=== PATIENT | male | born 1970 | race Two or more races ===

== ENCOUNTER 2019-05-05 13:03 | Outpatient (REF) | payer OTHER, SELFPAY ==
[2019-05-05 13:41] LABS: ALT 28 U/L (16-63); AST 15 U/L (15-37); Albumin 3.9 g/dL (3.4-5.0); Alkaline Phosphatase 103 U/L (46-116); Anion Gap 8.2 mmol/L (3-11); BUN 15 mg/dL (7-18); Bilirubin, Total 0.3 mg/dL (0.2-1.0); CO2 28.8 mmol/L (21.0-32.0); CREATININE 1.03 mg/dL (0.70-1.30); Calculated LDL 120 mg/dL; Chloride 106 mmol/L (98-107); Cholesterol 177 mg/dL (50-200); Glucose 107 mg/dL (70-100); HDL Cholesterol 45 mg/dL (40-60); Potassium 4.4 mmol/L (3.5-5.1); Sodium 143 mmol/L (136-145); Total Protein 7.3 g/dL (6.4-8.2); Triglyceride 60 mg/dL (30-150)
== END 2019-05-05 13:23 ==
LOC: NCHCN 13:03
PROVIDERS: PCP Internal Medicine; Visit Provider Nurse Practitioner Family
DX: Z00.00 Encounter for general adult medical examination without abnormal findings (principal); Z13.228 Encounter for screening for other metabolic disorders; Z13.220 Encounter for screening for lipoid disorders
CPT/HCPCS: 80053; 80061; 83721

== ENCOUNTER 2020-12-13 18:53 | Outpatient (REF) | payer OTHER, SELFPAY ==
[2020-12-13 21:11] LABS: Anion Gap 8.4 mmol/L (3-11); BUN 12 mg/dL (7-18); CO2 29.6 mmol/L (21.0-32.0); CREATININE 1.1 mg/dL (0.70-1.30); Calcium 9.9 mg/dL (8.5-10.1); Chloride 103 mmol/L (98-107); Glucose 89 mg/dL (74-106); Potassium 4.1 mmol/L (3.5-5.1); Sodium 141 mmol/L (136-145)
== END 2020-12-13 18:54 | disposition home or self-care (01) ==
LOC: NCHCN 18:53
PROVIDERS: PCP Internal Medicine; Visit Provider Physician Assistant Medical
DX: Z00.00 Encounter for general adult medical examination without abnormal findings (principal); R30.0 Dysuria
CPT/HCPCS: 80048; 87086

== ENCOUNTER 2021-03-29 15:15 | Outpatient (REF) | payer OTHER, SELFPAY ==
[2021-03-29 21:34] LABS: PSA, Screening 0.7 ng/mL (0.0-2.5)
== END 2021-03-29 15:16 | disposition home or self-care (01) ==
LOC: NCHCN 15:15
PROVIDERS: PCP Internal Medicine; Visit Provider Nurse Practitioner Family
DX: N48.89 Other specified disorders of penis (principal); R30.0 Dysuria; R39.11 Hesitancy of micturition
CPT/HCPCS: 84153

== ENCOUNTER 2021-06-23 18:36 | Emergency (ER) | payer OTHER, SELFPAY ==
[2021-06-23 18:41] VITALS: BP 134/80; PULSE 84; RESP 16; TEMP 36.8; O2SAT 98
--- NOTE | 2021-06-23 18:59 | ED.GENADUL_ITS ---
Discharge Plan Disposition Patient Disposition: HOME Condition: Stable Discharge Details Clinical Impression: Back pain Primary Care Provider: Nixon Jackson ED Provider: Silvia Shaver Home Meds and New Rx's Prescriptions: New orphenadrine citrate 100 mg tablet extended release 100 mg PO BID Qty: 10 RF: 0 lidocaine [Lidoderm] 5 % adhesive patch,medicated 1 patch topical DAILY Qty: 15 RF: 0 Continued acetaminophen [Tylenol] 325 mg capsule 650 mg PO Q6H PRNRF: 0 Discharge Instructions Instructions: Back Pain (ED) Additional Instructions: Ibuprofen 600 mg every 8 hours with food Lidoderm patch, 12 hours on, 12 hours off Twice daily Follow-up with primary care physician in 1 to 2 days for reassessment Return earlier should you have strength or sensation change, fever, chills, or with any new or worsening complaints Stand Alone Forms: Work Release Medical Decision Making CT per virtual radiology interpretation in my review does not show acute abnormality, patient does have bilateral nephrolithiasis without ure terolithiasis His urinalysis is completely clear, no evidence of infection Patient feeling symptomatically improved I will treat him for musculoskeletal pain and referred him primary care physician His vitals are stable and his exam is stable, he is ambulatory with steady gait He is given a work note He is instructed return earlier should he have new or worsening complaints including strength or sensation change, fever, chills, abdominal pain, or should he develop new or worsening complaints including groin numbness or changes in bowel or bladder. Medical Records Medical records reviewed: Yes I reviewed the patient's medical records. Lab Data Lab results reviewed: Yes I reviewed the patient's lab results. HPI General Mode of arrival: ambulatory . Date/Time Provider Initiated Documentation: 06/23/21 18:37 . Limitations to Documentation: no limitations . Information obtained by: patient . HPI Narrative: This 50-year-old male presents with report of back pain for the past week he is intermittent and now worsening today. He was doing some wai when the pain first initiated and was across his entire back. He states now is localized to the left flank region. He states the pain is worse when he is laying in a supine position and going from supine to sitting. He denies any strength or sensation change. He denies any fever or chills. He denies any changes in bowel or bladder. He denies any history of IV drug abuse. He denies sharp stabbing pain. He denies any history of Marfan's or known history of early aortic dissection in family members. He does not smoke tobacco. He denies any strength or sensation changes distally. He denies any radiation of pain. Denies chest pain or shortness of breath. Denies dizziness or weakness. Related Data Home Medications Medication Instructions Recorded Confirmed acetaminophen 325 mg capsule 650 mg PO Q6H PRN cap 06/19/21 06/23/21 lidocaine [Lidoderm] 1 patch TOPICAL DAILY #15 ea 06/23/21 orphenadrine citrate 100 mg PO BID #10 tab 06/23/21 Previous Rx's Medication Instructions Recorded lidocaine [Lidoderm] 1 patch TOPICAL DAILY #15 ea 06/23/21 orphenadrine citrate 100 mg PO BID #10 tab 06/23/21 Allergies Allergy/AdvReac Type Severity Reaction Status Date / Time bupropion [From Wellbutrin] AdvReac Intermediate Unverified 06/23/21 18:45 General Stated Complaint: Nk/Back Pain JESUS MANUEL: 4 Review of Systems All systems reviewed & are unremarkable except as noted in HPI and below PFSH Medical History (Updated 06/23/21 @ 21:21 by ANJELICA Garcia) Coccyx pain Dysuria GERD (gastroesophageal reflux disease) HLD (hyperlipidemia) Left hip pain Penile pain Right knee pain Spontaneous pneumothorax Social History Smoking/Tobacco Use Status: Former Tobacco Use Smoking risk assessment performed?: Yes Alcohol Intake: former Substance use type: does not use Exam Const General: cooperative and no acute distress Chest Chest: normal inspection of the chest Resp Effort & Inspection: normal respiratory effort Cardio Rate: regular rate Rhythm: regular rhythm Heart Sounds: murmur GI Other: No abdominal bruit or pulsatile mass, No CVA tenderness Back/Spine/Pelvis Other: No lumbar spine tenderness Skin General skin exam: no rashes or lesions noted Neuro General: patient alert and patient oriented x3 Other: DTRs intact bilateral upper and lower extremities, strength and sensation intact distally Negative straight leg raise, negative Babinski Extrem Other: Distal pulses intact Course Vital Signs Vital signs: Vital Signs Temperature 36.8 C 06/23/21 18:41 Pulse 84 06/23/21 18:41 Respiratory Rate 16 06/23/21 18:41 Blood Pressure 134/80 06/23/21 18:41 Pulse Oximetry 98 06/23/21 18:41 Temperature 36.8 C 06/23/21 18:41 Temperature Source Skin 06/23/21 18:41 Pulse 84 06/23/21 18:41 Respiratory Rate 16 06/23/21 18:41 Respiratory Effort Non-Labored 06/23/21 18:41 Blood Pressure 134/80 06/23/21 18:41 Blood Pressure Position Sitting 06/23/21 18:41 Pulse Oximetry 98 06/23/21 18:41 Oxygen Delivery Method Room Air 06/23/21 18:41 Oxygen Flow Rate 0 06/23/21 18:41 Pain Level 8 06/23/21 18:41
[2021-06-23] MEDS: Lidocaine 5% Patch 1 PATCH TP (19:04)
[2021-06-23 19:05] LABS: Bilirubin Negative (Negative); Blood Negative (Negative); Clarity Clear (Clear); Glucose Negative (Negative); Ketones Negative (Negative); Leukocyte Esterase Negative (Negative); Nitrite Negative (Negative); Specific Gravity 1.015 (1.005-1.025); Urobilinogen 0.2 EU/dL (Up TO 0.2)
[2021-06-23] MEDS: Ketorolac 15 MG/ML VIAL IM (19:10)
[2021-06-23] MEDS: Orphenadrine 60 MG/2 ML VIAL IM (19:10)
--- NOTE | 2021-06-23 19:45 | DI.CT_ITS ---
Exam(s) CT ABDOMEN PELVIS WO EXAM: CT ABDOMEN PELVIS WO CLINICAL HISTORY: left flank pain. TECHNIQUE: Imaging Protocol: Axial computed tomography images with coronal and sagittal reformatted images were created and reviewed. COMPARISON: No exams were available for comparison FINDINGS: ABDOMEN: Lung Bases: Paraseptal emphysematous changes. Liver: Normal density. No measurable mass. Gallbladder and biliary tract: No radiodense calculus or biliary ductal dilation. Pancreas: Normal density, no abnormal calcifications or inflammatory process. Spleen: Normal. Kidneys: Normal size, contour and axis.Bilateral nephrolithiasis. No ureterolithiasis or hydronephro sis. No masses seen. Adrenal glands: No mass is seen. Lymph nodes: Within normal limits. Abdominal Aorta: Abdominal portion non-dilated. Atherosclerosis. PELVIS: Bladder:Symmetric distention, no gross wall thickening. Bowel: No obstruction or bowel wall thickening. Appendix is unremarkable. Peritoneal cavity: No ascites, collection or mesenteric inflammatory response. No free air. Reproductive organs: Within normal limits. Bones: Within normal limits. Soft Tissues: Small fat containing para umbilical hernia. IMPRESSION: 1. No acute abdominal pelvic process. 2. Bilateral nephrolithiasis. No ureterolithiasis or hydronephrosis. RADIATION DOSE DELIVERED: 888.21mGy.cm Total DLP DATA REPOSITORY: All CT scans at this facility are submitted to the National Radiology Data Registry (NRDR) Dose Index Registry (DIR) with the [employer] (ACR). RADIATION OPTIMIZATION: All CT scans at this facility use at least one of these dose optimization te chniques: automated exposure control; mA and/or kV adjustment per patient size (includes targeted exa ms where dose is matched to clinical indication); or iterative reconstruction.
[2021-06-23] MEDS: oxyCODONE 5 MG TAB PO (19:56)
[2021-06-23 20:35] VITALS: BP 136/80; PULSE 72; RESP 16; TEMP 36.6; O2SAT 99
--- NOTE | 2021-06-23 21:11 | DI.VRAD_ITS ---
PROCEDURE INFORMATION: Exam: CT Abdomen And Pelvis Without Contrast Exam date and time: 06/23/2021 7:51 PM Age: 50 years old Clinical indication: Abdominal pain TECHNIQUE: Imaging protocol: Computed tomography of the abdomen and pelvis without contrast. COMPARISON: No relevant prior studies available. FINDINGS: Liver: Normal. No mass. Gallbladder and bile ducts: Normal. No calcified stones. No ductal dilation. Pancreas: Normal. No ductal dilation. Spleen: Normal. No splenomegaly. Adrenal glands: Normal. No mass. Kidneys and ureters: Minute radiopaque renal calculi. No radiopaque ureteric calculi. No hydronephrosis.There is bilateral perinephric stranding which is nonspecific. Stomach and bowel: Unremarkable. No obstruction. No mucosal thickening. Appendix: Normal appendix. Intraperitoneal space: Unremarkable. No free air. No significant fluid collection. Vasculature: Unremarkable. No abdominal aortic aneurysm. Lymph nodes: Unremarkable. No enlarged lymph nodes. Urinary bladder: Unremarkable as visualized. Reproductive: Unremarkable as visualized. Bones/joints: Unremarkable. No acute fracture. Soft tissues: There is an uncomplicated fat-containing umbilical hernia. IMPRESSION: 1. No acute findings. 2. Bilateral renal calculi. Dictated and Authenticated by: Waldemar Chase MD. Ordering:MARY Vega MD
[2021-06-23 21:32] VITALS: BP 121/86; PULSE 76; RESP 19; TEMP 36.6; O2SAT 97
== END 2021-06-23 21:34 | disposition home or self-care (01) ==
PROVIDERS: Emergency Provider Physician Assistant; PCP Internal Medicine
DX: M54.50 Low back pain, unspecified (principal)
CPT/HCPCS: 96372; 99284; J2360; 74176; 81003; 99283; J1885

== ENCOUNTER 2022-02-03 15:34 | Emergency (ER) | payer OTHER, SELFPAY ==
[2022-02-03 15:41] VITALS: BP 124/82; PULSE 75; RESP 16; TEMP 35.2; O2SAT 98
--- NOTE | 2022-02-03 15:59 | ED.GENADUL_ITS ---
Discharge Plan Disposition Patient Disposition: HOME Condition: Stable Discharge Details Chief Complaint: RashLesion Clinical Impression: Tick bite Primary Care Provider: Merissa Reno ED Provider: Mulugeta Odonnell Home Meds and New Rx's Prescriptions: No Action acetaminophen [Tylenol] 325 mg capsule 650 mg PO Q6H PRN Discharge Instructions Instructions: Tick Bite (ED) Additional Instructions: Please return the emergency department if you develop spreading redness around the tick bite site or if you develop other symptoms such as fevers chills body aches joint pain headache chest pain shortness of breath or any other abnormal symptoms. Medical Decision Making 59-year-old male presents after removing tick from his right groin, believes the tick has been there less than 24 hours as he did not notice a tick yesterday and felt something chronic up his arm last night in bed, also notes that the tick was flat signifying that it was unlikely to have been feeding for a long time. Area of erythema around retained mouthparts likely local reaction does not appear to be erythema migrans. Counseled patient extensively regarding need to return if erythema spreads or if he develops systemic signs of illness. We will follow-up with his primary care physician. I have left the retained mouthparts in place. No signs of superinfection such as cellulitis or abscess. HPI General Date/Time Provider Initiated Documentation: 02/03/22 15:44 . HPI Narrative: 51-year-old male presents after tick bite, found a small flat tick on his right groin, did see any ticks on his body yesterday, believes he felt something crawling up his arm last night during sleep, patient removed the tick believes there may be some retained head/mouthpiece. No fevers chills nausea vomiting or systemic signs of illness. Related Data Home Medications Medication Instructions Recorded Confirmed acetaminophen 325 mg capsule 650 mg PO Q6H PRN 06/19/21 02/03/22 (Tylenol) Allergies Allergy/AdvReac Type Severity Reaction Status Date / Time bupropion [From Wellbutrin] AdvReac Intermediate Unverified 02/03/22 15:44 General Stated Complaint: RashLesion JESUS MANUEL: 4 Review of Systems Narrative: Review of Systems Constitutional: negative Eyes: negative ENT: negative Cardiovascular: negative Respiratory: negative Gastrointestinal: negative : negative Musculoskeletal: negative Skin: Tick bite Neurologic: negative Psych: negative PFSH All Active Problems (Updated 02/03/22 @ 16:11 by Mulugeta Odonnell MD) Tick bite (Acute) Lower urinary tract symptoms (LUTS) (Acute) Back pain (Acute) Medical History (Updated 02/03/22 @ 16:11 by Mulugeta Odonnell MD) Coccyx pain Dysuria GERD (gastroesophageal reflux disease) HLD (hyperlipidemia) Left hip pain Penile pain Right knee pain Spontaneous pneumothorax Social History Smoking/Tobacco Use Status: Former Tobacco Use Smoking risk assessment performed?: Yes Alcohol Intake: former Substance use type: does not use Exam Narrative Exam Narrative: Physical Examination General: alert, awake, cooperative, resting comfortably, no acute distress HEENT: normocephalic, atraumatic; PERRL, EOM intact, conjunctiva normal; no nasal discharge; moist mucous membranes, oral and pharyngeal mucosa normal, tolerating secretions Neck: supple, trachea midline; full ROM Chest: normal to inspection Respiratory: normal respiratory effort, speaking in full sentences, clear to auscultation, no wheezing, rales or rhonchi Cardiac: regular rate, regular rhythm, S1S2 intact, no murmurs rubs or gallops GI: abdomen soft, non-tender, non-distended; no palpable mass or hepatosplenomegaly Skin: 1 cm diameter area of erythema with central punctate area with dark material consistent with retained tick mouthparts, no surrounding/spreading areas of erythema; no fluctuance, no crepitus, no purulence Neuro: AAOx3, normal speech, moving all extremities Psych: Appropriate mood and affect Course Vital Signs Vital signs: Vital Signs Temperature 35.2 C L 02/03/22 15:41 Pulse 75 02/03/22 15:41 Respiratory Rate 16 02/03/22 15:41 Blood Pressure 124/82 02/03/22 15:41 Pulse Oximetry 98 02/03/22 15:41 Temperature 35.2 C L 02/03/22 15:41 Temperature Source Temporal Artery Scan 02/03/22 15:41 Pulse 75 02/03/22 15:41 Respiratory Rate 16 02/03/22 15:41 Respiratory Effort 02/03/22 15:41 Blood Pressure 124/82 02/03/22 15:41 Blood Pressure Position Sitting 02/03/22 15:41 Pulse Oximetry 98 02/03/22 15:41 Oxygen Delivery Method Room Air 02/03/22 15:41 Oxygen Flow Rate 0 02/03/22 15:41 Pain Level 0 02/03/22 15:41
== END 2022-02-03 16:18 | disposition home or self-care (01) ==
PROVIDERS: Emergency Provider Emergency Medicine; PCP Nurse Practitioner Family
DX: S30.861A Insect bite (nonvenomous) of abdominal wall, initial encounter (principal); W57.XXXA Bitten or stung by nonvenomous insect and other nonvenomous arthropods, initial encounter
CPT/HCPCS: 99281

== ENCOUNTER 2023-12-28 16:40 | Emergency (ER) | payer BC, SELFPAY ==
[2023-12-28 16:54] VITALS: BP 159/93; PULSE 78; RESP 12; TEMP 36.9; O2SAT 98
--- NOTE | 2023-12-28 17:00 | DI.CT_ITS ---
Exam(s) CT RENAL COLIC WO EXAM: CT RENAL COLIC WO CLINICAL HISTORY: right flank pain. TECHNIQUE: Imaging Protocol: Axial computed tomography images with coronal and sagittal reformatted images were created and reviewed. COMPARISON: CT CT ABDOMEN PELVIS WO from 06/23/2021 FINDINGS: ABDOMEN: Lung Bases: Normal where visualized. Liver: Normal density. No measurable mass. Gallbladder and biliary tract: No radiodense calculus or biliary ductal dilation. Pancreas: Normal density, no abnormal calcifications or inflammatory process. Spleen: Normal. Kidneys: Normal size, contour and axis.There is bilateral nephrolithiasis. There is a 5 mm right UVJ stone with minimal hydronephrosis. No masses seen. Adrenal glands: No mass is seen. Lymph nodes: Within normal limits. Abdominal Aorta: Abdominal portion non-dilated. Atherosclerotic calcification is present. PELVIS: Bladder:Symmetric distention, no gross wall thickening. Bowel: No obstruction or bowel wall thickening. Appendix is unremarkable. Peritoneal cavity: No ascites, collection or mesenteric inflammatory response. No free air. Reproductive organs: Unremarkable as visualized. Bones: Within normal limits. Soft Tissues: There is a small fat containing umbilical hernia. IMPRESSION: 1. 5 mm right UVJ stone with mild hydronephrosis. 2. Bilateral nephrolithiasis. RADIATION DOSE DELIVERED: 840.48mGy.cm Total DLP DATA REPOSITORY: All CT scans at this facility are submitted to the National Radiology Data Registry (NRDR) Dose Index Registry (DIR) with the [employer] (ACR). RADIATION OPTIMIZATION: All CT scans at this facility use at least one of these dose optimization te chniques: automated exposure control; mA and/or kV adjustment per patient size (includes targeted exa ms where dose is matched to clinical indication); or iterative reconstruction.
[2023-12-28 17:09] LABS: Bilirubin Negative (Negative); Blood Moderate (Negative); Clarity Clear (Clear); Glucose Negative (Negative); Ketones Trace mg/dL (Negative); Leukocyte Esterase Negative (Negative); Nitrite Negative (Negative); Specific Gravity 1.025 (1.005-1.025); Urobilinogen 0.2 mg/dL (Up to 0.2); pH 6.5 (5-8)
[2023-12-28] MEDS: Ketorolac 15 MG/ML VIAL IVP (17:12)
[2023-12-28] MEDS: Normal Saline 1,000 ML 1000 ML IV (17:13)
[2023-12-28 17:16] LABS: Abs Immature Grans 0.02 10^3/uL (0.0-0.06); Absolute Basophil Count 0.03 10^3/uL (0.0-0.2); Absolute Eosinophil Count 0.33 10^3/uL (0.0-0.7); Absolute Lymphocyte Count 2.84 10^3/uL (1.2-3.4); Absolute Monocyte Count 0.35 10^3/uL (0.1-0.8); Absolute Neutrophil Count 4.42 10^3/uL (1.2-6.7); Basophils % 0.4; Eosinophils % 4.1; HCT 45.9 % (40.0-50.0); HGB 14.8 g/dL (13.5-17.5); Immature Grans % 0.3; Lymphocytes % 35.5; MCH 28.8 pg (27.0-33.0); MCHC 32.2 % (32.0-36.0); MCV 90 fL (80-95); MPV 9.2 fL (8.0-11.0); Monocytes % 4.4; Neutrophils % 55.3; Platelet Count 244 10^3/uL (130-400); RBC 5.13 10^6/uL (4.36-5.78); RDW 13.2 % (11.8-14.1); RDW-SD 43.7 fL; WBC 7.99 10^3/uL (4.4-10.8)
[2023-12-28 17:18] LABS: Bacteria Rare HPF (Negative); C & S Indicated? No; Casts Negative LPF (Negative); Crystals Negative HPF (Negative); Epithelial Cells Rare HPF (Negative); Mucus Negative (Negative); WBC Negative HPF (0-5)
[2023-12-28 17:31] LABS: ALT 37 U/L (16-63); AST 15 U/L (15-37); Albumin 3.9 g/dL (3.4-5.0); Alkaline Phosphatase 99 U/L (46-116); Anion Gap 9.8 mmol/L (3-11); BUN 17 mg/dL (7-18); Bilirubin, Total 0.3 mg/dL (0.2-1.0); CO2 28.2 mmol/L (21.0-32.0); CREATININE 1.1 mg/dL (0.70-1.30); Calcium 9.1 mg/dL (8.5-10.1); Chloride 106 mmol/L (98-107); Estimated GFR 80.77 (mL/min/1.73m2); Glucose 97 mg/dL (74-106); Potassium 4.2 mmol/L (3.5-5.1); Sodium 144 mmol/L (136-145); Total Protein 7.7 g/dL (6.4-8.2)
--- NOTE | 2023-12-28 18:11 | W.ED.GENAD ---
Discharge Plan Disposition Patient Disposition: Home Discharge Details Clinical Impression: Hydronephrosis with ureteral calculus Primary Care Provider: Unknown,Unknown ED Provider: Nik Chaves Home Meds and New Rx's Prescriptions: New ketorolac 10 mg tablet 10 mg PO TID PRN (Reason: pain) Qty: 15 0RF tamsulosin [Flomax] 0.4 mg capsule 0.4 mg PO QHS Qty: 14 0RF Continued acetaminophen [Tylenol] 325 mg capsule 650 mg PO Q6H PRN sildenafil [Viagra] 50 mg tablet 50 mg PO DAILY PRN (Reason: sexual activity) Qty: 4 0RF Rx Instructions: administer 30 minutes to 4 hours before activity (Take 1/2 tab) Discharge Instructions Instructions: Kidney Stones (ED) Additional Instructions: Please stay hydrated with 2 to 3 L of fluid per day, return to the emergency department immediately if you have severe worsening of discomfort, fever or chills, or any further concerns. Please take medication as prescribed and follow-up with urology for reassessment. Referrals: [facility] [Provider Group] - 2 weeks Discharge Data Discharge Date/Time-TO BE ENTERED AT DEPARTURE: 12/28/23 18:46 HPI General Mode of arrival: ambulatory. Date/Time Provider Initiated Documentation: 12/28/23 16:57. Limitations to Documentation: no limitations. Information obtained by: patient and RN notes reviewed. History of Present Illness 53 year old M presents to the emergency department with the chief complaint of Right flank pain, described as moderate, and is localized to the right (Flank). Patient started experiencing this minute(s) (30) and it has been constant. No relieving factors improve symptom(s), No exacerbating factors reported . Patient notes no other symptoms.. Patient did receive the following treatments prior to arrival, none Related Data Home Medications Medication Instructions Recorded Confirmed acetaminophen 325 mg capsule 650 mg PO Q6H PRN 06/19/21 02/03/22 (Tylenol) sildenafil 50 mg tablet (Viagra) 50 mg PO DAILY PRN sexual activity 06/24/22 06/24/22 #4 tabs ketorolac 10 mg tablet 10 mg PO TID PRN pain #15 tabs 12/28/23 tamsulosin 0.4 mg capsule (Flomax) 0.4 mg PO QHS #14 caps 12/28/23 Previous Rx's Medication Instructions Recorded sildenafil 50 mg tablet (Viagra) 50 mg PO DAILY PRN sexual activity 06/24/22 #4 tabs ketorolac 10 mg tablet 10 mg PO TID PRN pain #15 tabs 12/28/23 tamsulosin 0.4 mg capsule (Flomax) 0.4 mg PO QHS #14 caps 12/28/23 Allergies Allergy/AdvReac Type Severity Reaction Status Date / Time bupropion [From Wellbutrin] AdvReac Intermediate Unverified 12/23/22 15:27 General Stated Complaint: FlankPain JESUS MANUEL: 3 Review of Systems Constitutional Constitutional: Denies chills and Denies fever(s) Cardiovascular Cardiovascular: Denies chest pain and Denies dyspnea Respiratory Respiratory: Denies dyspnea Gastrointestinal Gastrointestinal: Denies abdominal pain, Denies nausea and Denies vomiting Genitourinary Genitourinary: Reports as per HPI, Denies hematuria, Reports genital pain and Reports flank pain Musculoskeletal Musculoskeletal: Denies back pain Exam Const General: cooperative Orientation: alert, awake and oriented x3 Resp Effort & Inspection: normal respiratory effort and able to speak in complete sentences Auscultation: clear to auscultation bilaterally Cardio Rate: regular rate Rhythm: regular rhythm Heart Sounds: S1 normal and S2 normal GI Palpation: soft, no masses and nontender Auscultation: normal bowel sounds General: CVA tenderness on the right Back/Spine/Pelvis Back: no CVA tenderness Neuro General: patient alert, patient awake, patient oriented x3, gait normal and moves all extremities Course Vital Signs Vital signs: Vital Signs Temperature 36.9 C 12/28/23 16:54 Pulse 78 12/28/23 16:54 Respiratory Rate 12 12/28/23 16:54 Blood Pressure 159/93 H 12/28/23 16:54 Pulse Oximetry 98 12/28/23 16:54 Temperature 36.9 C 12/28/23 16:54 Temperature Source Oral 12/28/23 16:54 Pulse 78 12/28/23 16:54 Respiratory Rate 12 12/28/23 16:54 Respiratory Effort Normal, Non-Labored 12/28/23 16:57 Blood Pressure 159/93 H 12/28/23 16:54 Blood Pressure Position Sitting 12/28/23 16:54 Pulse Oximetry 98 12/28/23 16:54 Oxygen Delivery Method Room Air 12/28/23 16:54 Oxygen Flow Rate 0 12/28/23 16:54 Pain Level 7 12/28/23 16:54 Lab/Test Results Lab/Test Results: Laboratory Tests Range/Units 12/28/23 12/28/23 16:51 17:00 WBC (4.4-10.8) 10^3/uL 7.99 RBC (4.36-5.78) 10^6/uL 5.13 Hgb (13.5-17.5) g/dL 14.8 Hct (40.0-50.0) % 45.9 MCV (80-95) fL 90 MCH (27.0-33.0) pg 28.8 MCHC (32.0-36.0) % 32.2 RDW (11.8-14.1) % 13.2 Plt Count (130-400) 10^3/uL 244 MPV (8.0-11.0) fL 9.2 Immature Gran % 0.3 Neutrophils % 55.3 Lymphocytes % 35.5 Monocytes % 4.4 Eosinophils % 4.1 Basophils % 0.4 Nucleated RBC % (0.0-0.3) % 0.0 Absolute Neutrophils (1.2-6.7) 10^3/uL 4.42 Absolute Lymphocytes (1.2-3.4) 10^3/uL 2.84 Absolute Monocytes (0.1-0.8) 10^3/uL 0.35 Absolute Eosinophils (0.0-0.7) 10^3/uL 0.33 Absolute Basophils (0.0-0.2) 10^3/uL 0.03 Sodium (136-145) mmol/L 144 Potassium (3.5-5.1) mmol/L 4.2 Chloride (98-107) mmol/L 106 Carbon Dioxide (21.0-32.0) mmol/L 28.2 Anion Gap (3-11) mmol/L 9.8 BUN (7-18) mg/dL 17 Creatinine (0.70-1.30) mg/dL 1.1 Est GFR (CKD-EPI 2020) (mL/min/1.73m2) 80.77 Glucose (74-106) mg/dL 97 Calcium (8.5-10.1) mg/dL 9.1 Total Bilirubin (0.2-1.0) mg/dL 0.3 AST (15-37) U/L 15 ALT (16-63) U/L 37 Alkaline Phosphatase (46-116) U/L 99 Total Protein (6.4-8.2) g/dL 7.7 Albumin (3.4-5.0) g/dL 3.9 Urine Color (Yellow) Yellow Urine Clarity (Clear) Clear Urine pH (5-8) 6.5 Ur Specific [place] (1.005-1.025) 1.025 Urine Protein (Neg-Trace) mg/dL Negative Urine Ketones (Negative) mg/dL Trace H Urine Blood (Negative) Moderate H Urine Nitrite (Negative) Negative Urine Bilirubin (Negative) Negative Urine Urobilinogen (Up to 0.2) mg/dL 0.2 Ur Leukocyte Esterase (Negative) Negative Urine RBC (0-2) HPF 10-20 H Urine WBC (0-5) HPF Negative Ur Epithelial Cells (Negative) HPF Rare Urine Crystals (Negative) HPF Negative Urine Bacteria (Negative) HPF Rare Urine Casts (Negative) LPF Negative Urine Mucus (Negative) Negative Ur Culture Indicated? No Urine Glucose (Negative) mg/dL Negative Medical Decision Making Patient presenting to the emergency department for chief complaint of right flank pain. Patient reports approximately 30 minutes prior to arrival while riding in the car he had sudden onset of right flank pain radiating into his groin. Patient reports history of LUTS which he sees urology for and states history of kidney stones. Patient denies any injury or trauma, musculoskeletal pain, pain with movement. Physical exam shows right CVA tenderness which is mild, otherwise noncontributory exam. Will plan on performing labs and CT imaging for suspicion of kidney stone. Pending results will give fluids and ketorolac. Review of labs shows an unremarkable CBC and CMP. Urinalysis shows trace ketones and moderate blood no signs of infection. Still pending radiologist interpretation of CT imaging it does appear that there is a small amount of hydro nephrosis and hydroureter on the right side with a stone near the UVJ. Reassessed patient and he states significant improvement of symptoms. Reviewed radiological imaging that shows a 3 mm stone with hydroureter and hydronephrosis. Patient started on Flomax and given prescription for NSAID along with placed on referral to urology to follow-up to ensure appropriate resolution or to have additional treatment as needed. After discussion of diagnosis and plan of care patient has no further needs, questions, or concerns and states clear understanding to return to the emergency department for any worsening symptoms. This documentation was generated using [employer] dictation system, please disregard any oddities of phrase or misspellings. Imaging Data Radiologic Study: Imaging: CT Scan Radiologist's impression: Exam(s) PROCEDURE INFORMATION: Exam: CT Abdomen And Pelvis Without Contrast Exam date and time: 12/28/2023 5:25 PM Age: 53 years old Clinical indication: Other: Right flank pain TECHNIQUE: Imaging protocol: Computed tomography of the abdomen and pelvis without contrast. Radiation optimization: All CT scans at this facility use at least one of these dose optimization techniques: automated exposure control; mA and/or kV adjustment per patient size (includes targeted exams where dose is matched to clinical indication); or iterative reconstruction. COMPARISON: CT ABDOMEN PELVIS WO 06/23/2021 8:13 PM FINDINGS: Liver: Normal. Gallbladder and bile ducts: Normal Pancreas: Normal. Spleen: Normal. Adrenal glands: Normal. No mass. Kidneys and ureters: Bilateral nonobstructive nephrolithiasis. Mild right hydroureteronephrosis, with obstructing 3 mm calculus at the right UVJ (series 3, image 755). Stomach and bowel: Normal. Appendix: Appendix normal. Intraperitoneal space: Unremarkable. No free air. No significant fluid collection. Vasculature: Phleboliths within the pelvis. Lymph nodes: Unremarkable. No enlarged lymph nodes. Urinary bladder: Unremarkable as visualized. Reproductive: Unremarkable as visualized. Bones/joints: L5-S1 degenerative disc disease, disc space narrowing, vacuum disc phenomenon, and osteophyte formation. Posterior disc bulges at the L4-L5 and L5-S1 levels, cause ventral thecal sac indentation and bilateral neural foraminal narrowing. Soft tissues: Small fat containing periumbilical hernia. IMPRESSION: Mild right hydroureteronephrosis, with obstructing 3 mm calculus at the right UVJ (series 3, image 755). Dictated and Authenticated by: Valentino Kidd MD. 3 mm stone Lab Data Lab results reviewed: Yes I reviewed the patient's lab results. Quality:SDOH Health Related Social Needs: No Data to Display PFSH All Active Problems (Updated 12/28/23 @ 18:29 by Nik Chaves NP) Hydronephrosis with ureteral calculus (Acute) Erectile dysfunction (Acute) Lower urinary tract symptoms (LUTS) (Acute) Back pain (Acute) Medical History Spontaneous pneumothorax GERD (gastroesophageal reflux disease) HLD (hyperlipidemia) Right knee pain Left hip pain Dysuria Penile pain Coccyx pain Social History Smoking/Tobacco Use Status: Former Tobacco Use Smoking risk assessment performed?: Yes Alcohol Intake: former Substance use type: does not use Housing: house Do you feel safe at home: Yes Do you feel safe in your relationship?: Yes
--- NOTE | 2023-12-28 18:24 | DI.VRAD_ITS ---
PROCEDURE INFORMATION: Exam: CT Abdomen And Pelvis Without Contrast Exam date and time: 12/28/2023 5:25 PM Age: 53 years old Clinical indication: Other: Right flank pain TECHNIQUE: Imaging protocol: Computed tomography of the abdomen and pelvis without contrast. Radiation optimization: All CT scans at this facility use at least one of these dose optimization techniques: automated exposure control; mA and/or kV adjustment per patient size (includes targeted exams where dose is matched to clinical indication); or iterative reconstruction. COMPARISON: CT ABDOMEN PELVIS WO 06/23/2021 8:13 PM FINDINGS: Liver: Normal. Gallbladder and bile ducts: Normal Pancreas: Normal. Spleen: Normal. Adrenal glands: Normal. No mass. Kidneys and ureters: Bilateral nonobstructive nephrolithiasis. Mild right hydroureteronephrosis, with obstructing 3 mm calculus at the right UVJ (series 3, image 755). Stomach and bowel: Normal. Appendix: Appendix normal. Intraperitoneal space: Unremarkable. No free air. No significant fluid collection. Vasculature: Phleboliths within the pelvis. Lymph nodes: Unremarkable. No enlarged lymph nodes. Urinary bladder: Unremarkable as visualized. Reproductive: Unremarkable as visualized. Bones/joints: L5-S1 degenerative disc disease, disc space narrowing, vacuum disc phenomenon, and osteophyte formation. Posterior disc bulges at the L4-L5 and L5-S1 levels, cause ventral thecal sac indentation and bilateral neural foraminal narrowing. Soft tissues: Small fat containing periumbilical hernia. IMPRESSION: Mild right hydroureteronephrosis, with obstructing 3 mm calculus at the right UVJ (series 3, image 755). Dictated and Authenticated by: Valentino Kidd MD. Ordering:SAIRA Zaragoza MD
--- NOTE | 2023-12-28 18:34 | NUR.NOTE ---
Referral faxed to Urology for Rt Sided Stone 3mm, UVJ on flowmake. Would like Pt to be seen within 2 weeks.
[2023-12-28] MEDS: Tamsulosin 0.4 MG CAPCR PO (18:44)
== END 2023-12-28 18:46 | disposition home or self-care (01) ==
PROVIDERS: Emergency Provider Nurse Practitioner Family; PCP Nurse Practitioner Family
DX: N13.2 Hydronephrosis with renal and ureteral calculous obstruction (principal); E78.5 Hyperlipidemia, unspecified
CPT/HCPCS: 80053; 96374; 99284; 74176; 81003; 81015; 85025; J1885

== ENCOUNTER 2024-03-04 06:05 | Day surgery (SDC) | payer BC, SELFPAY ==
[2024-03-04] VITALS (22 sets, daily range): BP systolic 99–114; BP diastolic 59–79; PULSE 56–77; RESP 12–22; TEMP 36.2–36.6; O2SAT 97–100; BMI 24.2
[2024-03-04] MEDS: Lactated Ringers 1,000 ML 80 ML IV (06:34)
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
[2024-03-04] MEDS: ceFAZolin 2 GM/50 ML BAG IVPB (08:05)
[2024-03-04] MEDS: Lidocaine 2% Jelly 11 ML SYR (08:15)
[2024-03-04] MEDS: Omnipaque 300 MG/ML 50 ML BTL (08:20)
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
--- NOTE | 2024-03-04 08:53 | W.PM.DSUDISC ---
Date of service: 03/04/24 Time of Service: 08:54 Discharge Plan Disposition Patient Disposition: Home Discharge Details Reason For Visit: ureteroscopy Attending Provider: Jonah Ellison Primary Care Provider: Unknown,Unknown Home Meds and New Rx's Prescriptions: New tramadol 50 mg tablet 50 mg PO Q6H PRNQty: 20 0RF Rx Instructions: may take along with NSAIDs and tylenol No Action acetaminophen [Tylenol] 325 mg capsule 650 mg PO Q6H PRN sildenafil [Viagra] 50 mg tablet 50 mg PO DAILY PRN (Reason: sexual activity) Qty: 4 0RF Rx Instructions: administer 30 minutes to 4 hours before activity (Take 1/2 tab) Discharge Instructions Additional Instructions: You have a stent in the right ureter - it is not unusual to see blood in the urine or have discomfort when you urinate as long as the stent is present There is no need to strain your urine My office will contact you to arrange for an additional procedure to remove the right stent and to treat your left kidney stone (the right side is completely cleared out) Activity:: Activity as Tolerated Shower/Bathe:: 24 hours Diet:: As Tolerated Discharge Orders Discharge Orders: Discharge Order (Routine); Ordered 03/04/24 Ordered By: Jonah Ellison DS: Diagnosis Discharge Diagnosis (1) Ureteral stone: Status: Acute
--- NOTE | 2024-03-04 08:55 | DI.RAD_ITS ---
Exam(s) XR RETROGRADE IN OR EXAM: XR RETROGRADE IN OR CLINICAL HISTORY: Hydronephrosis with ureteral calculus: RIGHT SIDE TECHNIQUE: 2D and realtime digital imaging was performed. CONTRAST MATERIAL: Refer to procedure report. COMPARISON: CT CT RENAL COLIC WO from 12/28/2023 FINDINGS: Fluoroscopy was provided for Dr. Ellison during the performance of a retrograde evaluation of the maribel l collecting system. Please refer to the procedure report for complete details. Ka,r=6.15 mGy IMPRESSION: RADIATION DOSE DELIVERED: 0.0 0.0 0
--- NOTE | 2024-03-04 08:59 | ROE_ITS ---
Date of service: 03/04/24 Time of Service: 09:00 Operative Note Operative Note DATE OF PROCEDURE: 03/04/24 PRE-OP DIAGNOSIS: Right ureteral stone POST-OP DIAGNOSIS: other (right kidney stones) PROCEDURE: cystoscopy, right retrograde pyelogram, right semirigid and flexible ureteroscopy, extraction of kidney stone, insert right ureteral stent SURGEON: Jonah Ellison ANESTHESIA TYPE: Local By Surgeon and General LMA/ETT Refer to Anesthesia Record ESTIMATED BLOOD LOSS: 5 PATHOLOGY: other (stone for chemical analysis) COMPLICATIONS: None Patient was transported to: PACU Patient's condition: stable Implants: 4.8 Mozambican by 22 to 30 cm right ureteral stent Indications: This is a 53-year-old gentleman who had an emergency room visit for right renal colic. He was found to have a right distal ureteral stone that was causing his symptoms. He also had nonobstructing stones in the right kidney. He had a follow-up a renal ultrasound which showed no remaining hydronephrosis, but it did appear that his right ureteral stone was still present. He presents now for ureteroscopy and treatment of his distal ureteral stone. He is also interested in having his kidney stones treated under the same anesthetic. Findings: right ureteral stone no longer present Procedure Description: The patient was brought to the operating room on 03/04/2024. He was given preprocedural IV antibiotics. After successful induction of general anesthesia, he was placed in the dorsal lithotomy position. His genitalia was prepped and draped. 2% Xylocaine jelly was instilled into the urethra to act as a local anesthetic. A 22 Mozambican rigid cystoscope was passed through the urethra into the bladder. The urethra and bladder were inspected using a 30 degree lens. The pendulous, bulbar and membranous urethra all appeared normal with no strictures. The prostatic urethra showed minimal lateral lobe enlargement but no significant median lobe. The bladder neck was entered and the bladder mucosa was inspected. Both ureteral orifices appeared normal with no blood coming from either side. There is no significant edema around either orifice. The right ureteral orifice was cannulated with a 5 Mozambican access catheter. A retrograde pyelogram was obtained by injecting Omnipaque through the access catheter under fluoroscopic guidance. I did not visualize any filling defects in the distal ureter in the previous location of his ureteral stone. I then passed the guidewire through the lumen of the access catheter and removed the catheter leaving the wire in place. I removed the cystoscope and passed a semirigid ureteroscope through the urethra into the bladder. The scope was introduced into the distal ureter and with direct visualization, we confirmed the absence of his distal ureteral stone. I then passed a dual catheter over the indwelling wire and injected Omnipaque through the second lumen so that we could outline each of the renal calyces. I passed a second wire through the dual-lumen catheter and shows one of the wires as a working wire and the other as a safety wire. I passed the ureteral access sheath over the working wire leaving the safety wire in place. We then passed the flexible ureteroscope through the ureteral access sheath and inspected each of the calyces. There was a very small stone in one of the upper pole calyces that we did not believe needed to be treated, so we flushed of that stone down the ureter using a Pathfinder. We found a larger stone in one of the mid pole calyces. I was able to grasp that stone in a 0 tip stone basket and remove the stone in its entirety. The stone was then sent to the pathology lab for chemical analysis. I inspected the remainder of the ureter as I withdrew the flexible ureteroscope. No additional stones were seen along the ureter. We then passed a 4.8 Mozambican variable length stent over the safety wire. The stent was positioned with the proximal end curled in the renal pelvis and the distal end curled within the bladder. The positioning of the stent was confirmed both fluoroscopically and cystoscopically. The patient tolerated this procedure well with no complications. He was taken to the recovery room in stable condition. He will return to the OR in another week or 2 to have his left-sided kidney stones addressed.
[2024-03-04] MEDS: Phenazopyridine 200 MG TAB PO (10:04)
--- NOTE | 2024-03-04 14:49 | W.ANESPOSTOP ---
Postoperative Evaluation Date, Time and Location Date Performed: 03/04/24 Time Performed: 10:23 Patient Location: Day Surgery Unit Vital Signs Most Recent Imported Vital Signs: Most Recent Vital Signs Temp Pulse Resp BP Pulse Ox 36.4 C L 58 L 16 107/75 99 03/04/24 10:23 03/04/24 10:23 03/04/24 10:23 03/04/24 09:49 03/04/24 10:23 Pain Score Most Recent Pain Score: Most Recent Pain Score Pain Level 0 03/04/24 10:23 Assessment Mental Status: Awake (Alert & Oriented to Patient Baseline) Airway and Respiratory Function: Patent airway with normal (patient baseline) respiratory exam Cardiovascular Function: Hemodynamically Stable Hydration Status: Adequately Hydrated Nausea & Vomiting: No Nausea or Vomiting Pain: Pt. Denies Any Pain Peripheral Nerve Block: Patient did not receive a nerve block
[2024-03-09 22:04] LABS: Source: Right Kidney
== END 2024-03-04 11:08 | disposition home or self-care (01) ==
PROVIDERS: Visit Provider Urology
PROC: (CPT 52356; principal; 2024-03-04 07:30)
DX: N20.0 Calculus of kidney (principal); K21.9 Gastro-esophageal reflux disease without esophagitis; E78.5 Hyperlipidemia, unspecified
CPT/HCPCS: 52356; 74420; 82365; J0131; J0690; J1100; J2001; J2250; J2405; J2704; Q9967

== ENCOUNTER 2024-03-19 06:08 | Day surgery (SDC) | payer BC, SELFPAY ==
[2024-03-19] VITALS (22 sets, daily range): BP systolic 101–134; BP diastolic 52–79; PULSE 56–78; RESP 12–30; TEMP 36.2–36.4; O2SAT 94–99; BMI 24.2
--- OUTSIDE RECORDS SUMMARY | 2024-03-19 06:10 | XMS_ITS | Encounter Summary ---
Author Organization [facility] Address [address] [place] [address] Care Team Providers Care Attendant Sales Name Role Phone Vika Ventura NP Primary Care Provider [phone] Encounter Details Date Type Department Care Team (Latest Contact Info) Description 01/08/2016 14:35 EDT - 01/08/2016 23:59 EDT Hospital Encounter [facility] [address] [place] [address] Unknown, Provider, Discharge Disposition: Home or Self Care Social History Tobacco Use Types Packs/Day Years Used Date Smoking Tobacco: Every Day Cigarettes Smokeless Tobacco: Former Sex and Gender Information Value Date Recorded Sex Assigned at Not on file Gender Identity Not on file Sexual Orientation Not on file documented as of this encounter Functional Status Functional Status Response Date of Assess ment Because of a physical, menta l, or emotional condition, does this person have difficulty doing errands alone such as visiting a doctor's office or shopping? No 04/04/2015 Cognitive Status Response Date of Assessm ent Because of a physical, menta l, or emotional condition, does this person have serious difficulty concentrating, remembering, or making decisions? No 04/04/2015 documented as of this encounter Discharge Disposition Disposition Code Departure Means Destination Home or Self Longterm documented in this encounter Plan of Treatment Not on file documented as of this encounter Visit Diagnoses Not on filedocumented in this encounter Care Teams Attendant Sales Relationship Specialty Start Date End Date Vika Ventura NP PCP - General 04/04/15 11/14/20 documented as of this encounter
--- OUTSIDE RECORDS SUMMARY | 2024-03-19 06:10 | XMS_ITS | Encounter Summary ---
Author Organization [facility] Address [address] [place] [address] Care Team Providers Care Electrotherapist Name Role Phone Vika Ventura NP Primary Care Provider [phone] Encounter Details Date Type Department Care Team (Latest Contact Info) Description 10/12/2016 11:07 EST - 10/12/2016 23:59 EST Hospital Encounter [facility] [address] [place] [address] Unknown, Provider, Discharge Disposition: Home or Self [...] Code Departure Means Destination Home or Self [facility] documented in this encounter Plan of Treatment Not on file documented as of this encounter Visit Diagnoses Not on filedocumented in this encounter Care Teams Electrotherapist Relationship Specialty Start Date End Date Vika Ventura NP PCP - General 04/04/15 11/14/20 documented as of this encounter
--- OUTSIDE RECORDS SUMMARY | 2024-03-19 06:10 | XMS_ITS | Encounter Summary ---
Author Organization [facility] Address [address] [place] [address] Care Team Providers Care Dairy Tester Name Role Phone Vika Ventuar TANK INSPECTOR Primary Care Provider [phone] Encounter Details Date Type Department Care Team (Late st Contact Info) Description 05/22/2015 Historical Results Only [facility] Radiology Results [address] [place] [address] Aspen Anand MD [address] [place] [phone] Social History Tobacco Use Types Packs/Day Years [...] No 04/04/2015 documented as of this encounter Plan of Treatment Not on file documented as of this encounter Procedures Procedure Name Priority Date/Time Associated Diagnosis Comments XR FINGER RIGHT 2 OR MORE VIEWS 05/22/2015 20:03 EDT documented in this encounter Results * XR FINGER RIGHT 2 OR MORE VIEWS (05/22/2015 20:03 EDT) Anatomical Region Laterality Modality Upper Extremities Right Other 05/22/2015 20:0 3 EDT Narrative 05/23/2015 10:43 EDT ? EXAM: RADIOLOGY/THUMB-RIGHT ? EX. D/ (0832) ? CLINICAL INFORMATION: ? S/P RIGHT THUMB FX. DONE AT [facility] ? INDICATION: Statuspost right thumb fracture. ? COMPARISON: RIGHT THUMB RADIOGRAPH - 05/08/2015. ? TECHNIQUE: PA and lateral views. ? FINDINGS: There has been mild interval but incomplete healing of the ? nondisplaced comminuted fracture of the thumb proximal phalanx. The ? MCP and IP joints of the thumb are grossly intact. No other fracture ? is seen. ? IMPRESSION: ??Healing fracture. ? REPORT SIGNED IN OTHER VENDOR SYSTEM 05/23/2015 ?Reported By: Pollo Wagner MD ? CC: ? Transcribed Date/Time: 05/23/2015 (1043) ? Soda Room Operator: ROSA ? Printed Date/Time: 02/16/2019 (6438) ? PAGE 1 ? Signed Report ? Procedure Note Pollo Wagner MD - 07/13/2019 EXAM: RADIOLOGY/THUMB-RIGHT EX. D/ (0832) CLINICAL INFORMATION: S/P RIGHT THUMB FX. DONE AT [facility] INDICATION: Statuspost right thumb fracture. COMPARISON: RIGHT THUMB RADIOGRAPH - 05/08/2015. TECHNIQUE: PA and lateral views. FINDINGS: There has been mild interval but incomplete healing ofthe nondisplaced comminuted fracture of the thumb proximal phalanx. The MCP and IP joints of the thumb are grossly intact. No otherfracture is seen. IMPRESSION: Healing fracture. REPORT SIGNED IN OTHER VENDOR SYSTEM 05/23/2015 Reported By: Pollo Wagner MD CC: Transcribed Date/Time: 05/23/2015 (1043) Soda Room Operator: ROSA Printed Date/Time: 02/16/2019 (5105) PAGE 1 Signed Report Aspen Anand MD IMG DIAGNOSTIC IMAGING ORDERABLES documented in this encounter Visit Diagnoses Not on filedocumented in this encounter Care Teams Dairy Tester Relationship Specialty Start Date End Date Vika Ventura NP PCP - General 04/04/15 11/14/20 documented as of this encounter
--- OUTSIDE RECORDS SUMMARY | 2024-03-19 06:10 | XMS_ITS | Encounter Summary ---
Author Organization [facility] Address [address] [place] [address] Care Team Providers Care Home Health Cna Name Role Phone Vika Ventura MUSICAL INSTRUMENT MAKER OR REPAIRER Primary Care Provider Encounter Details Date Type Department Care Team (Late st Contact Info) Description 01/15/2016 Historical Results Only [facility] Radiology Results [address] [place] [address] Ravi Casillas MD [address] [place] [phone] Social History Tobacco Use Types Packs/Day Years [...] Name Priority Date/Time Associated Diagnosis Comments XR ABDOMEN 1 VIEW 01/15/2016 8:20 EDT documented in this encounter Results * XR ABDOMEN 1 VIEW (01/15/2016 8:20 EDT) Anatomical Region Laterality Modality Body Other 01/15/2016 8:20 EDT Narrative 01/15/2016 12:13 EDT ? EXAM: RADIOLOGY/KUB 1V ?EX. D/ (0803) ? CLINICAL INFORMATION: ? URETERAL STONE ? R/O RADIO-OPAQUE URINARY STONES ? INDICATION: URETERAL STONE: R/O RADIO-OPAQUE URINARY STONES. ? COMPARISON: CT scan of the abdomen and pelvis 01/08/2016. ? TECHNIQUE: AP view of the abdomen and pelvis was obtained. ? FINDINGS: There are one or two tiny radiodensities superimposed over ? the region of the right kidney lower pole and there are three or four ? tiny radiodensities superimposed over the region of the left kidney ? consistent with known bilateral renal calculi. The bowel gas pattern ? has a normal appearance. A left pelvic phlebolith is present. ? IMPRESSION: ? Bilateral nephrolithiasis. ? REPORT SIGNED IN OTHER VENDOR SYSTEM 01/15/2016 ?Reported By: Pollo Wagner MD ? CC: Ravi Casillas ? Transcribed Date/Time: 01/15/2016 (1213) ? Whip Sawyer: ? Printed Date/Time: 02/19/2019 (0238) ? PAGE 1 ? Signed Report ? Procedure Note Pollo Wagner MD - 07/14/2019 EXAM: RADIOLOGY/KUB 1V EX. D/ (0803) CLINICAL INFORMATION: URETERAL STONE R/O RADIO-OPAQUE URINARY STONES INDICATION: URETERAL STONE: R/O RADIO-OPAQUE URINARY STONES. COMPARISON: CT scan of the abdomen and pelvis 01/08/2016. TECHNIQUE: AP view of the abdomen and pelvis was obtained. FINDINGS: There are one or two tiny radiodensities superimposedover the region of the right kidney lower pole and there are three orfour tiny radiodensities superimposed over the region of the left kidney consistent with known bilateral renal calculi. The bowel gaspattern has a normal appearance. A left pelvic phlebolith is present. IMPRESSION: Bilateral nephrolithiasis. REPORT SIGNED IN OTHER VENDOR SYSTEM 01/15/2016 Reported By: Pollo Wagner MD CC: Ravi Casillas Transcribed Date/Time: 01/15/2016 (1213) Whip Sawyer: Printed Date/Time: 02/19/2019 (0134) PAGE 1 Signed Report Rvai Casillas MD IMG DIAGNOSTIC IM AGING ORDERABLES documented in this encounter Visit Diagnoses Not on filedocumented in this encounter Care Teams Home Health Cna Relationship Specialty Start Date End Date Vika Ventura NP PCP - General 04/04/15 11/14/20 documented as of this encounter
--- OUTSIDE RECORDS SUMMARY | 2024-03-19 06:10 | XMS_ITS | Encounter Summary ---
Author Organization [facility] Address [address] [place] [address] Care Team Providers Care Auto Body Worker Name Role Phone Vika Ventura PUDDLER HELPER Primary Care Provider [phone] Encounter Details Date Type Department Care Team (Late st Contact Info) Description 01/22/2016 Historical Results Only [facility] Radiology Results [address] [place] [address] Ravi Casillas MD [address] [place] [phone] Social History Tobacco Use Types Packs/Day Years [...] Associated Diagnosis Comments XR ABDOMEN 1 VIEW 01/22/2016 8:55 EDT documented in this encounter Results * XR ABDOMEN 1 VIEW (01/22/2016 8:55 EDT) Anatomical Region Laterality Modality Body Other 01/22/2016 8:55 EDT Narrative 01/22/2016 9:36 EDT ? EXAM: RADIOLOGY/KUB 1V ?EX. D/ (0813) ? CLINICAL INFORMATION: ? N20.1 URETERAL STONE ? N20.0 KIDNEY STONE ? R/O RADIO-OPAQUE URINARY STONES ? INDICATION: N20.1 Ureteral stone: N20.0 Kidney stone. ? COMPARISON: KUB - 01/15/2016. ? TECHNIQUE: AP view of the abdomen and pelvis was obtained. ? FINDINGS: Air and fecal matter are superimposed over the both renal ? fossa limiting evaluation of renal stones. At least 3 calcifications ? are seen superimposed over the left renal fossa and at least one is ? seen superimposed over the right renal fossa, consistent with stones. ? A calcification in the left lower pelvis is unchanged and consistent ? with a phlebolith. No other interval change is seen. ? IMPRESSION: ??Bilateral nephrolithiasis. ? REPORT SIGNED IN OTHER VENDOR SYSTEM 01/22/2016 ?Reported By: Pollo Wagner MD ? CC: Ravi Casillas ? Transcribed Date/Time: 01/22/2016 (0936) ? It Architecture Analyst: ? Printed Date/Time: 02/19/2019 (0238) ? PAGE 1 ? Signed Report ? Procedure Note Pollo Wagner MD - 07/14/2019 EXAM: RADIOLOGY/KUB 1V EX. D/ (0813) CLINICAL INFORMATION: N20.1 URETERAL STONE N20.0 KIDNEY STONE R/O RADIO-OPAQUE URINARY STONES INDICATION: N20.1 Ureteral stone: N20.0 Kidney stone. COMPARISON: KUB - 01/15/2016. TECHNIQUE: AP view of the abdomen and pelvis was obtained. FINDINGS: Air and fecal matter are superimposed over the both renal fossa limiting evaluation of renal stones. At least 3calcifications are seen superimposed over the left renal fossa and at least one is seen superimposed over the right renal fossa, consistent withstones. A calcification in the left lower pelvis is unchanged andconsistent with a phlebolith. No other interval change is seen. IMPRESSION: Bilateral nephrolithiasis. REPORT SIGNED IN OTHER VENDOR SYSTEM 01/22/2016 Reported By: Pollo Wagner MD CC: Ravi Casillas Transcribed Date/Time: 01/22/2016 (0936) It Architecture Analyst: Printed Date/Time: 02/19/2019 (0234) PAGE 1 Signed Report Ravi Casillas MD IMG DIAGNOSTIC IM AGING ORDERABLES documented in this encounter Visit Diagnoses Not on filedocumented in this encounter Care Teams Auto Body Worker Relationship Specialty Start Date End Date Vika Ventura NP PCP - General 04/04/15 11/14/20 documented as of this encounter
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
--- OUTSIDE RECORDS SUMMARY | 2024-03-19 06:10 | XMS_ITS | Referral Summary ---
Author Organization [facility] Address [address] [place] [address] Care Team Providers Care Core Worker Name Role Phone Unavailable Primary Care Provider Unavailabl e Allergies No known active allergies Medications No known medications Active Problems No known active problems Social History Tobacco Use Types Packs/Day Years Used Date Smoking Tobacco: Every Day Cigarettes Smokeless Tobacco: Former Interpersonal Safety Answer Date Record ed Physically Hurt Never 04/09/2020 Verbally Threaten Not on file 04/09/2020 Sex and Gender Information Value Date Recorded Sex Assigned at Not on file Gender Identity Not on file Sexual Orientation Not on file Functional Status Functional Status Response Date of [...] concentrating, remembering, or making decisions? No 04/04/2015 Plan of Treatment Not on file Procedures Procedure Name Priority Date/Time Associated Diagnosis Comments LIPID PROFILE (INCLUDES CHOLESTEROL, TRIGLYCERIDES, HDL, LDL) Routine 09/25/2016 7:43 EST from Last 3 Months or Most Recently Relevant to Health Maintenance Results * (ABNORMAL) LIPID PROFILE (INCLUDES CHOLESTEROL, TRIGLYCERIDES, HDL, LDL) (09/25/2016 7:43 EST) Triglyceride 86 35 - 150 mg/dL 09/25/2016 12:22 EST [facility] Cholesterol 187 120 - 200 mg/dL 09/25/2016 12:22 EST [facility] Chol/HDL Ratio 3.7 0 - 5.0 09/25/2016 12:22 [facility] Comment: DESIRABLE RATIO IS LESS THAN 4.1 PATIENTS ARE CONSIDERED AT RISK: WOMEN RATIO >5 MEN RATIO >6 FASTING? [place] [facility] [place] 7 11:45 EST [facility] HDL 50 40 - 60 mg/dL 09/25/2016 12:22 [facility] LDL CHOLESTEROL - [facility] [place] 120(H) 60 - 100 mg/dL 09/25/2016 12:22 [facility] Non HDL Cholesterol 137 mg/dl 09/25/2016 12:22 [facility] Comment: Desirable: ?Less than 130 Borderline High: ??130-159 High: ? 160-189 Very High: ?Greater than or equal to 190 09/25/2016 7:43 EST 09/25/2016 11:45 EST Vika Renteria Anti MANAGER PROTEIN CHEMISTRY & BLOOD G ORDERABLES [facility] from Last 3 Months or Most Recently Relevant to Health Maintenance
--- OUTSIDE RECORDS SUMMARY | 2024-03-19 06:10 | XMS_ITS | Encounter Summary ---
Author Organization [facility] Address [address] [place] [address] Care Team Providers Care Terra Cotta Mold Maker Name Role Phone Vika Ventura NP Primary Care Provider [phone] Encounter Details Date Type Department Care Team (Latest Contact Info) Description 03/12/2019 9:14 EDT - 03/12/2019 23:59 EDT Hospital Encounter [facility] [address] [place] [address] Unknown, Provider, Discharge Disposition: Home or Self [...] Code Departure Means Destination Home or Self Half-Way documented in this encounter Plan of Treatment Not on file documented as of this encounter Visit Diagnoses Not on filedocumented in this encounter Care Teams Terra Cotta Mold Maker Relationship Specialty Start Date End Date Vika Ventura NP PCP - General 04/04/15 11/14/20 documented as of this encounter
--- OUTSIDE RECORDS SUMMARY | 2024-03-19 06:10 | XMS_ITS | Encounter Summary ---
Author Organization [facility] Address [address] [place] [address] Care Team Providers Care Drafter Geophysical Name Role Phone Vika Ventura FINAL INSPECTOR SHUTTLE Primary Care Provider [phone] Encounter Details Date Type Department Care Team (Late st Contact Info) Description 01/08/2016 Historical Results Only [facility] Radiology Results [address] [place] [address] Leonardo Benoit MD [address] [place] [address] Social History Tobacco Use Types [...] Date/Time Associated Diagnosis Comments CT ABDOMEN PELVIS WO CONTRAST 01/08/2016 11:30 EDT documented in this encounter Results * CT ABDOMEN PELVIS WO CONTRAST (01/08/2016 11:30 EDT) Anatomical Region Laterality Modality Other 01/08/2016 11:3 0 EDT Narrative 01/08/2016 11:40 EDT ? EXAM: CAT SCAN/ABDOMEN PELVIS WITHOUT CON EX. D/ (1128) ? CLINICAL INFORMATION: ? L FLANK PAIN RADIATING TO GROIN, MICROSCOPIC HEMATURIA ? Indication: L FLANK PAIN RADIATING TO GROIN, MICROSCOPIC HEMATURIA. ? Comparison: None. ? Technique: Noncontrast CT scan of the abdomen and pelvis was ? performed. ? Findings: ? A stone measuring 5.5 mm x 4.0 mm is present at the left ? ureterovesical junction. Mild left hydroureteronephrosis is present. ? There is a nonobstructing 4 mm and 5 mm diameter stone within the ? left kidney midpole and lower pole respectively. The lower pole stone ? has a density of 662 Hounsfield units. ? There are 2 nonobstructing stones measuring 3 mm each at the cortical ? medullary junction of the right kidney lower pole. 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 No stones are seen within the right ? ureter. No right hydronephrosis is present. ? The urinary bladder is unremarkable. ? The lung bases are clear. The unenhanced liver, gallbladder, spleen, ? adrenal glands and appendix are unremarkable. Degenerative disc ? disease is present at L5-S1. ? Impression: ? 1. 5.5 mm stone at the left ureterovesical junction resulting in mild ? left hydroureteronephrosis. ? 2. Bilateral nephrolithiasis and right medullary calcinosis. ? REPORT SIGNED IN OTHER VENDOR SYSTEM 01/08/2016 ?Reported By: Pollo Wagner MD ? CC: ? Transcribed Date/Time: 01/08/2016 (1140) ? Luggage Attendant: ? Printed Date/Time: 02/19/2019 (0238) ? PAGE 1 ? Signed Report ? Procedure Note Pollo Wagner MD - 07/14/2019 EXAM: CAT SCAN/ABDOMEN PELVIS WITHOUT CON EX. D/ (1128) CLINICAL INFORMATION: L FLANK PAIN RADIATING TO GROIN, MICROSCOPIC HEMATURIA Indication: L FLANK PAIN RADIATING TO GROIN, MICROSCOPIC HEMATURIA. Comparison: None. Technique: Noncontrast CT scan of the abdomen and pelvis was performed. Findings: A stone measuring 5.5 mm x 4.0 mm is present at the left ureterovesical junction. Mild left hydroureteronephrosis ispresent. There is a nonobstructing 4 mm and 5 mm diameter stone within the left kidney midpole and lower pole respectively. The lower polestone has a density of 662 Hounsfield units. There are 2 nonobstructing stones measuring 3 mm each at thecortical medullary junction of the right kidney lower pole. Right renal medullary calcinosis is present. No stones are seen within theright ureter. No right hydronephrosis is present. The urinary bladder is unremarkable. The lung bases are clear. The unenhanced liver, gallbladder,spleen, adrenal glands and appendix are unremarkable. Degenerative disc disease is present at L5-S1. Impression: 1. 5.5 mm stone at the left ureterovesical junction resulting inmild left hydroureteronephrosis. 2. Bilateral nephrolithiasis and right medullary calcinosis. REPORT SIGNED IN OTHER VENDOR SYSTEM 01/08/2016 Reported By: Pollo Wagner MD CC: Transcribed Date/Time: 01/08/2016 (1140) Luggage Attendant: Printed Date/Time: 02/19/2019 (7202) PAGE 1 Signed Report Leonardo Benoit MD IMG CT ORDERABLES documented in this encounter Visit Diagnoses Not on filedocumented in this encounter Care Teams Drafter Geophysical Relationship Specialty Start Date End Date Vika Ventura NP PCP - General 04/04/15 11/14/20 documented as of this encounter
--- OUTSIDE RECORDS SUMMARY | 2024-03-19 06:10 | XMS_ITS | Encounter Summary ---
Author Organization [facility] Address [address] [place] [address] Care Team Providers Care Contract Modeler Name Role Phone Vika Ventura NP Primary Care Provider [phone] Encounter Details Date Type Department Care Team (Latest Contact Info) Description 07/29/2016 13:24 EST - 07/29/2016 23:59 EST Hospital Encounter [facility] [address] [place] [address] Unknown, Provider, Discharge Disposition: Home or Self [...] Code Departure Means Destination Home or Self [facility] documented in this encounter Plan of Treatment Not on file documented as of this encounter Visit Diagnoses Not on filedocumented in this encounter Care Teams Contract Modeler Relationship Specialty Start Date End Date Vika Ventura NP PCP - General 04/04/15 11/14/20 documented as of this encounter
--- OUTSIDE RECORDS SUMMARY | 2024-03-19 06:10 | XMS_ITS | Encounter Summary ---
Author Organization [facility] Address [address] [place] [address] Care Team Providers Care Buttonhole Facer Name Role Phone None, Provider Primary Care Provider Unavailabl e Reason for Visit * Reason Comments Foreign Body in Eye [facility]erred [facility] for FB in right eye Encounter Details Date Type Department Care Team (Late st Contact Info) Description 03/13/2012 10:45 EDT Office Visit [facility] Ophthalmology [facility] [address] [place] [address] Marilou Ayala [address] [place] [address] Social History Tobacco Use Types Packs/Day Years Used Date Smoking Tobacco: Every Day Cigarettes Smokeless Tobacco: Former Sex and Gender Information Value Date Recorded Sex Assigned at Not on file Gender Identity Not on file Sexual Orientation Not on file documented as of this encounter Progress Notes * Marilou Ayala - 03/13/2012 1146 EDT Chief Complaint Patient presents with ??? Foreign Body in Eye Referred [facility] for FB in right eye HPI The patient is a 41 y.o. male c/o FBS right eye ever since what he assumed to a piece of metal fly into his eye 4 days ago. Right Eye: Gritty/Foreign Body sensation Left Eye: NL Visual Fluctuations: None Visual Aid: None Current Rx Age Location: Right eye Pain: 4 Quality: Severity: Moderate Duration: Weeks Timing: Constant Lasts: Continuous Context: Pt was holding a metal door while it was being shaved and felt something go in his right eye, several days ago. Still feels fb sensation and irritation. Went to [facility] and was referred here. Modifying factors: Associated Signs & Symptoms: Visual Fluctuations: None Attestation: ROS Constitutional: NL Exposures: None Other: Attestation: Base Ophthalmology Exam Visual Acuity Right Left Both Dist sc 20/20 20/20 Method: Snellen - Linear Tonometry Right Left Pressure 19 20 Method: Applanation Time: 11:04 Main Ophthalmology Exam Slit Lamp Exam Right Left Lids/Lashes Normal Normal Conjunctiva/Sclera small black jo in inferior cul de sac, Pinguecula Pinguecula Cornea Clear, no staining Clear, no staining Anterior Chamber Deep and quiet Deep and quiet Iris Round and reactive Round and reactive Lens Clear Clear Neuro/Psych Oriented x3: Yes Mood/Affect: Normal DIAGNOSTIC TESTS: IMPRESSION & PLAN: Conjunctival Foreign Body, right eye -FB removed; no K FB or rust ring seen -Sample of Artificial tears given; use PRN eye irritation -RTC PRN if FBS persists I have reviewed the patient's past medical, family, social and surgical history. I have also reviewed the patient's medications, allergies, and problem list. I performed my own HPI and have reviewed the tech's ROS as well. I personally completed this exam myself. Marilou Ayala MD I am scribing for Marilou Ayala MD, while she is personally performing the service. Patient Education Topic: FB Method: Verbal Taught to: Patient Barriers: None Outcomes: independent Signature: YOCASTA [place] documented in this encounter Plan of Treatment Not on file documented as of this encounter Visit Diagnoses Diagnosis Foreign body in conjunctival sac- Primary documented in this encounter Eye Exam Visual Acuity (Snellen - Linear) Right eye Left eye Dist sc 20/20 20/20 Tonometry (Applanation, 11:04) Right eye Left eye Pressure 19 20 Neuro/Psych Oriented x3: Yes Mood/Affect: Normal Slit Lamp Exam Right eye Left eye Lids/Lashes Normal Normal Conjunctiva/Sclera small black jo in inferior cul de sac, Pinguecula Pinguecula Cornea Clear, no staining Clear, no sta ining Anterior Chamber Deep and quiet Deep and quiet Iris Round and reactive Round and fátima ctive Lens Clear Clear Care Teams Buttonhole Facer Relationship Specialty Start Date End Date None, Provider PCP - General 03/12/12 04/03/15 documented as of this encounter
--- OUTSIDE RECORDS SUMMARY | 2024-03-19 06:10 | XMS_ITS | Encounter Summary ---
Author Organization [facility] Address [address] [place] [address] Care Team Providers Care Electrical Sign Servicer Name Role Phone Vika Ventura VENDING SERVICE TECHNICIAN Primary Care Provider [phone] Encounter Details Date Type Department Care Team (Late st Contact Info) Description 12/28/2018 Historical Results Only [facility] Radiology Results [address] [place], [place] [address] Norma Khalil PA-C [address] [facility] [address] [place], [place] [address] Social History Tobacco Use Types Packs/Day Years [...] Priority Date/Time Associated Diagnosis Comments XR FINGER LEFT 2 OR MORE VIEWS 12/28/2018 17:57 EDT documented in this encounter Results * XR FINGER LEFT 2 OR MORE VIEWS (12/28/2018 17:57 EDT) Anatomical Region Laterality Modality Upper Extremities Left Other 12/28/2018 17:5 7 EDT Narrative 12/28/2018 17:57 EDT ? EXAM: RADIOLOGY EXPRESS CARE/EXP CARE FIN EX. D/ (1719) ? CLINICAL INFORMATION: ? M79.645 ??LEFT FINGER PAIN ? EXAM: ?XR Left Finger(s), 2 or More Views ? EXAM DATE/TIME: ?12/28/2018 5:14 PM ? CLINICAL HISTORY: ?48 years old, male; Pain; Finger(s); Left; Additional info: M79.645 ? left finger pain ? TECHNIQUE: ?Imaging protocol: XR Left finger minimum 2 views. ? COMPARISON: ?CR FINGER 05/22/2015 8:35 AM ? FINDINGS: ?Bones/joints: See Soft Tissues Finding. ?Soft tissues: There is soft tissue swelling at the PIP joint of the ? little finger. Most likely this is secondary to sprain. As ? visualized there is no sign of fracture or dislocation. ? There is a small marginal erosion at the ulnar side of the proximal ? phalanx at the PIP joint. ? IMPRESSION: ? 1. Soft tissue swelling of the PIP joint of the left little finger ? which may be from sprain. ? 2. There is a 1 mm marginal erosion at the ulnar side of the ? proximal phalanx at the PIP joint. This could be secondary to early ? rheumatoid arthritis. ? REPORT SIGNED IN OTHER VENDOR SYSTEM 12/28/2018 ?Reported By: Doug Jones DO ? CC: ? Transcribed Date/Time: 12/28/2018 (1756) ? Business Support Specialist: ? Printed Date/Time: 05/26/2019 (8549) ? PAGE 1 ? Signed Report ? Procedure Note Doug Jones DO - 07/13/2019 EXAM: RADIOLOGY EXPRESS CARE/EXP CARE FIN EX. D/ (1719) CLINICAL INFORMATION: M79.645 LEFT FINGER PAIN EXAM: XR Left Finger(s), 2 or More Views EXAM DATE/TIME: 12/28/2018 5:14 PM CLINICAL HISTORY: 48 years old, male; Pain; Finger(s); Left; Additional info: M79.645 left finger pain TECHNIQUE: Imaging protocol: XR Left finger minimum 2 views. COMPARISON: CR FINGER 05/22/2015 8:35 AM FINDINGS: Bones/joints: See Soft Tissues Finding. Soft tissues: There is soft tissue swelling at the PIP joint of the little finger. Most likely this is secondary to sprain. As visualized there is no sign of fracture or dislocation. There is a small marginal erosion at the ulnar side of the proximal phalanx at the PIP joint. IMPRESSION: 1. Soft tissue swelling of the PIP joint of the left little finger which may be from sprain. 2. There is a 1 mm marginal erosion at the ulnar side of the proximal phalanx at the PIP joint. This could be secondary to early rheumatoid arthritis. REPORT SIGNED IN OTHER VENDOR SYSTEM 12/28/2018 Reported By: Doug Jones DO CC: Transcribed Date/Time: 12/28/2018 (1756) Business Support Specialist: Printed Date/Time: 05/26/2019 (2466) PAGE 1 Signed Report Norma Khalil PA-C IMG DIAGNOSTIC IMAGI NG ORDERABLES documented in this encounter Visit Diagnoses Not on filedocumented in this encounter Care Teams Electrical Sign Servicer Relationship Specialty Start Date End Date Vika Ventura NP PCP - General 04/04/15 11/14/20 documented as of this encounter
--- OUTSIDE RECORDS SUMMARY | 2024-03-19 06:10 | XMS_ITS | Encounter Summary ---
Author Organization [facility] Address [address] [place] [address] Care Team Providers Care Certified Legal Secretary Specialist Name Role Phone Vika Ventura BREAD OVEN OPERATOR Primary Care Provider [phone] Encounter Details Date Type Department Care Team (Late st Contact Info) Description 05/08/2015 Historical Results Only [facility] Radiology Results [address] [place] [address] Albert Boswell MD [address] [place] [address] Social History Tobacco Use Types Packs/Day Years [...] XR FINGER RIGHT 2 OR MORE VIEWS 05/08/2015 19:32 EDT documented in this encounter Results * XR FINGER RIGHT 2 OR MORE VIEWS (05/08/2015 19:32 EDT) Anatomical Region Laterality Modality Upper Extremities Right Other 05/08/2015 19:3 2 EDT Narrative 05/08/2015 19:36 EDT ? EXAM: RADIOLOGY/THUMB-RIGHT ? EX. D/ (1152) ? CLINICAL INFORMATION: ? S/P RIGHT THUMB INJURY. DONE AT [facility] ? THUMB-RIGHT ??05/08/2015 11:51 AM ? Clinical History/Comments: Right thumb fracture. ? Comparison: Right thumb radiographs 04/24/2015 ? Fundings: PA, lateral, and oblique views of the right thumb were ? obtained. Again seen is a comminuted fracture involving the 1st ? proximal phalanx. Alignment at the fracture site is essentially ? unchanged relative to the examination performed 04/24/2015. There is ? no evidence of significant interval healing. ? REPORT SIGNED IN OTHER VENDOR SYSTEM 05/08/2015 ?Reported By: Jn Morrison MD ? CC: ? Transcribed Date/Time: 05/08/2015 (1936) ? Crown Attacher: ? Printed Date/Time: 02/16/2019 (6180) ? PAGE 1 ? Signed Report ? Procedure Note Jn Morrison MD - 07/13/2019 EXAM: RADIOLOGY/THUMB-RIGHT EX. D/ (1152) CLINICAL INFORMATION: S/P RIGHT THUMB INJURY. DONE AT [facility] THUMB-RIGHT 05/08/2015 11:51 AM Clinical History/Comments: Right thumb fracture. Comparison: Right thumb radiographs 04/24/2015 Fundings: PA, lateral, and oblique views of the right thumb were obtained. Again seen is a comminuted fracture involving the 1st proximal phalanx. Alignment at the fracture site is essentially unchanged relative to the examination performed 04/24/2015. There is no evidence of significant interval healing. REPORT SIGNED IN OTHER VENDOR SYSTEM 05/08/2015 Reported By: Jn Morrison MD CC: Transcribed Date/Time: 05/08/2015 (1936) Crown Attacher: Printed Date/Time: 02/16/2019 (3602) PAGE 1 Signed Report Albert Boswell MD IMG DIAGNOSTIC IMAGING ORDERABLES documented in this encounter Visit Diagnoses Not on filedocumented in this encounter Care Teams Certified Legal Secretary Specialist Relationship Specialty Start Date End Date Vika Ventura NP PCP - General 04/04/15 11/14/20 documented as of this encounter
--- OUTSIDE RECORDS SUMMARY | 2024-03-19 06:10 | XMS_ITS | Encounter Summary ---
Author Organization [facility] Address [address] [place] [address] Care Team Providers Care Semiconductor Packages Leak Tester Name Role Phone Vika Ventura NP Primary Care Provider [phone] Encounter Details Date Type Department Care Team (Late st Contact Info) Description 09/25/2016 Historical Results Only [facility] [place] [address] [place], [place] [address] Vika Ventura NP [address] [place] [phone] Social History Tobacco Use Types Packs/Day Years [...] TRIGLYCERIDES, HDL, LDL) Routine 09/25/2016 7:43 EST documented in this encounter Results * (ABNORMAL) LIPID PROFILE (INCLUDES CHOLESTEROL, TRIGLYCERIDES, HDL, LDL) (09/25/2016 7:43 EST) Triglyceride 86 35 - 150 mg/dL 09/25/2016 12:22 EST [facility] Cholesterol 187 120 - 200 mg/dL 09/25/2016 12:22 [facility] Chol/HDL Ratio 3.7 0 - 5.0 09/25/2016 12:22 [facility] Comment: DESIRABLE RATIO IS LESS THAN 4.1 PATIENTS ARE CONSIDERED AT RISK: WOMEN RATIO >5 MEN RATIO >6 FASTING? - [facility] Yes 7 11:45 EST [facility] HDL 50 40 - 60 mg/dL 09/25/2016 12:22 [facility] LDL CHOLESTEROL - [facility] 120(H) 60 - 100 mg/dL 09/25/2016 12:22 [facility] Non HDL Cholesterol 137 mg/dl 09/25/2016 12:22 [facility] Comment: Desirable: ?Less than 130 Borderline High: ??130-159 High: ? 160-189 Very High: ?Greater than or equal to 190 09/25/2016 7:43 EST 09/25/2016 11:45 EST Vika Ventura NP CHEMISTRY & BLOOD G ORDERABLES [facility] documented in this encounter Visit Diagnoses Not on filedocumented in this encounter Care Teams Semiconductor Packages Leak Tester Relationship Specialty Start Date End Date Vika Ventura NP PCP - General 04/04/15 11/14/20 documented as of this encounter
--- OUTSIDE RECORDS SUMMARY | 2024-03-19 06:10 | XMS_ITS | Encounter Summary ---
Author Organization [facility] Address [address] [place] [address] Care Team Providers Care Chemical Weigher Name Role Phone Vika Ventura CHIEF DESIGN DRAFTER Primary Care Provider [phone] Encounter Details Date Type Department Care Team (Late st Contact Info) Description 04/16/2015 Historical Results Only [facility] Radiology Results [address] [place] [address] Lashawn Christensen NP [address] [place] [address] [place] [address] Social History Tobacco Use Types Packs/Day Years [...] XR FINGER RIGHT 2 OR MORE VIEWS 04/16/2015 10:34 EDT documented in this encounter Results * XR FINGER RIGHT 2 OR MORE VIEWS (04/16/2015 10:34 EDT) Anatomical Region Laterality Modality Upper Extremities Right Other 04/16/2015 10:3 4 EDT Narrative 04/16/2015 10:34 EDT ? EXAM: RADIOLOGY EXPRESS CARE/EXP CARE XR ??EX. D/ (0945) ? CLINICAL INFORMATION: ? RIGHT THUMB PAIN, S/P TRAUMA INJURY, R/O FX ? EXAM: ? XR Right Finger(s), 2 or More Views. ? CLINICAL HISTORY: ? 44 years old, male; Right thumb pain, ??S/P trauma injury, ??R/O fx ? TECHNIQUE: ? Frontal, lateral and oblique views of finger(s) of the right hand. ? COMPARISON: ? No relevant prior studies available. ? FINDINGS: ? There is a possibly comminuted fracture of the proximal half of ? the first proximal phalanx without significant displacement of ? fragments and without involvement of articular surfaces. ? IMPRESSION: ? Nondisplaced fracture of the proximal half of the first proximal ? phalanx does not involve the articular surface. ? REPORT SIGNED IN OTHER VENDOR SYSTEM 04/16/2015 ?Reported By: Seven Montoya MD ? CC: ? Transcribed Date/Time: 04/16/2015 (1034) ? Line Maintenance: ? Printed Date/Time: 02/16/2019 (1172) ? PAGE 1 ? Signed Report ? Procedure Note Seven Montoya MD - 07/13/2019 EXAM: RADIOLOGY EXPRESS CARE/EXP CARE XR EX. D/ (0945) CLINICAL INFORMATION: RIGHT THUMB PAIN, S/P TRAUMA INJURY, R/O FX EXAM: XR Right Finger(s), 2 or More Views. CLINICAL HISTORY: 44 years old, male; Right thumb pain, S/P trauma injury, R/O fx TECHNIQUE: Frontal, lateral and oblique views of finger(s) of the righthand. COMPARISON: No relevant prior studies available. FINDINGS: There is a possibly comminuted fracture of the proximal half of the first proximal phalanx without significant displacement of fragments and without involvement of articular surfaces. IMPRESSION: Nondisplaced fracture of the proximal half of the first proximal phalanx does not involve the articular surface. REPORT SIGNED IN OTHER VENDOR SYSTEM 04/16/2015 Reported By: Seven Montoya MD CC: Transcribed Date/Time: 04/16/2015 (1034) Line Maintenance: Printed Date/Time: 02/16/2019 (4450) PAGE 1 Signed Report Lashawn Christensen NP IMG DIAGNOSTIC IMAGI NG ORDERABLES documented in this encounter Visit Diagnoses Not on filedocumented in this encounter Care Teams Chemical Weigher Relationship Specialty Start Date End Date Vika Ventura NP PCP - General 04/04/15 11/14/20 documented as of this encounter
--- OUTSIDE RECORDS SUMMARY | 2024-03-19 06:10 | XMS_ITS | Encounter Summary ---
Author Organization [facility] Address [address] [place] [address] Care Team Providers Care Expert Witness Name Role Phone Vika Ventura AUTO BODY TECHNICIAN Primary Care Provider Reason for Visit * Reason Comments Eye Problem FB right eye since l ast night Encounter Details Date Type Department Care Team (Late st Contact Info) Description 04/04/2015 8:45 EDT Office Visit [facility] Ophthalmology [facility] [address] [place] [address] Andreas Tolbert MD [address] [place] [phone] Social History Tobacco Use Types Packs/Day Years [...] No 04/04/2015 documented as of this encounter Ordered Prescriptions Prescription Sig Dispensed Refills Start Date End Da te polymyxin B sulf-trimethoprim (POLYTRIM) ophthalmic solution Place 1 Drop into the right eye 4 times daily for 7 days 1 Bottle 0 04/04/2015 04/11/2015 documented in this encounter Progress Notes * Andreas Tolbert MD - 04/04/2015 1029 EDT Chief Complaint Patient presents with ??? Eye Problem FB right eye since last night HPI The patient is a 44 y.o. 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 Right Eye: Glare or Light Sensitivity, Pain/Soreness, Gritty/Foreign Body sensation Left Eye: NL Visual Aid: None Current Rx Age Location: Right eye Pain: 5 Quality: Severity: Moderate Duration: Hours Timing: Lasts: Context: Pt felt FB in right eye started last night around 8 pm. Had been working on brakes on a truck earlier in the evening Modifying factors: Eye is painful and light sensitive also. Associated Signs & Symptoms: Attestation: ROS Constitutional: NL ENT/Mouth Cardiovascular: Respiratory: Gastrointestinal: Genitourinary: Musculoskeletal: Integumentary: Neurologic: Psychiatric: Endocrine: Hematologic: Immunologic: Marketing Outreach Coordinator: Exposures: None Other: Attestation: Base Eye Exam Visual Acuity (Snellen - Linear) Right Left Dist sc 20/20 20/20 Tonometry (Applanation-MD, 10:31) Right Left Pressure 22 21 Slit Lamp and Fundus Exam Slit Lamp Exam Right Left Lids/Lashes No FB on lid eversion Conjunctiva/Sclera White and quiet Cornea 0.2mm diameter rust ring near central axis Anterior Chamber Deep and quiet Iris No TI defects Lens Clear Edited by: Andreas Tolbert MD DIAGNOSTIC TESTS: IMPRESSION & PLAN: 1. Foreign body, right eye 2. Rust Ring -Removed with TB syringe an Marlene at slit lamp -Drop of Cyclogyl and Vigamox given in office -Start Polytrim QID in the right eye for 7 days -Discussed importance of eye protection and recommended getting safety glasses with foam inserts around the edges. -Return in one week if no improvement of sooner PRN for a short visit I have reviewed the patient's past medical, family, social and surgical history. I have also reviewed the patient's medications, allergies, and problem list. I performed my own HPI and have reviewed the tech's ROS as well. I completed this exam personally. Andreas Tlobert MD I am scribing for Andreas Tolbert MD, while he is personally performing the service. YOCASTA Roche Patient Education Topic: FB Method: Verbal Taught to: Patient Barriers: None Outcomes: independent and verbalized understanding Signature: Andreas Tolbert MD documented in this encounter Plan of Treatment Not on file documented as of this encounter Visit Diagnoses Diagnosis Foreign body of cornea, right, initial encounter- Primary Corneal rust ring, right documented in this encounter Eye Exam Visual Acuity (Snellen - Linear) Right eye Left eye Dist sc 20/20 20/20 Tonometry (Applanation-MD, 10:31) Right eye Left eye Pressure 22 21 Slit Lamp Exam Right eye Left eye Lids/Lashes No FB on lid eversion Normal Conjunctiva/Sclera White and quiet White and arnoldo et Cornea 0.2mm diameter rust ring near ce ntral axis Clear Anterior Chamber Deep and quiet Deep and quiet Iris No TI defects Round and reacti ve Lens Clear Clear Fundus Exam Right eye Left eye Disc Normal Normal C/D Ratio 0.2 0.25 Macula Normal Normal Care Teams Expert Witness Relationship Specialty Start Date End Date Vika Ventura NP PCP - General 04/04/15 11/14/20 documented as of this encounter
--- OUTSIDE RECORDS SUMMARY | 2024-03-19 06:10 | XMS_ITS | Encounter Summary ---
Author Organization [facility] Address [address] [place] [address] Care Team Providers Care Computer Forensics Technician Name Role Phone Unavailable Primary Care Provider Unavailabl e Encounter Details Date Type Department Care Team (Late st Contact Info) Description 03/29/2021 Lab Requisition [facility] Pathology & Laboratory Medicine - [facility] [address] [place] [address] Outr Resulting Lab, Provider Social History Tobacco Use Types Packs/Day Years [...] Procedure Name Priority Date/Time Associated Diagnosis Comments PSA TOTAL, DIAGNOSTIC Routine 03/29/2021 9:50 EDT documented in this encounter Results * PSA TOTAL, DIAGNOSTIC (03/29/2021 9:50 EDT) PSA 0.7 0.0 - 2.5 ng/mL 03/29/2021 21:29 EDT [facility] Blood VENOUS BLOOD / Unknown 03/29/2021 9:50 EDT 03/29/2021 20:29 EDT Narrative [facility] - 03/29/2021 21:29 EDT NOTE: Serum PSA concentration should not be interpreted as absolute evidence for the presence or absence of malignant disease. Assayed on Siemens Vivebioaur XPT using chemiluminescent technology.??Values obtained by using different assay methods cannot be used interchangeably. Provider Outr Resulting Lab CHEMISTRY & BLOOD GAS ORDERABLES [facility] [address] [place] [address] documented in this encounter Visit Diagnoses Not on filedocumented in this encounter
--- OUTSIDE RECORDS SUMMARY | 2024-03-19 06:10 | XMS_ITS | Encounter Summary ---
Author Organization [facility] Address [address] [place] [address] Care Team Providers Care Etymology Professor Name Role Phone Vika Ventura REPAIR ARMATURE WINDER HELPER Primary Care Provider [phone] Encounter Details Date Type Department Care Team (Late st Contact Info) Description 04/24/2015 Historical Results Only [facility] Radiology Results [address] [place] [address] Albert Boswell MD [address] [place] [address] Social History Tobacco Use Types Packs/Day Years [...] XR FINGER RIGHT 2 OR MORE VIEWS 04/24/2015 11:49 EDT documented in this encounter Results * XR FINGER RIGHT 2 OR MORE VIEWS (04/24/2015 11:49 EDT) Anatomical Region Laterality Modality Upper Extremities Right Other 04/24/2015 11:4 9 EDT Narrative 04/24/2015 11:53 EDT ? EXAM: RADIOLOGY/THUMB-RIGHT ? EX. D/ (1133) ? CLINICAL INFORMATION: ? S/P RIGHT THUMB INJURY. DONE AT [facility] ? INDICATION: Right thumb injury with pain ? TECHNIQUE: 3 views right thumb ? COMPARISON: None ? FINDINGS: There is a highly comminuted fracture of the shaft and ? proximal metaphysis of the right thumb proximal phalanx. Alignment ? remains near-anatomic. No additional fractures are seen. ? Impression: ? 1. Highly comminuted right thumb proximal phalanx shaft/proximal ? metaphysis fracture. ? REPORT SIGNED IN OTHER VENDOR SYSTEM 04/24/2015 ?Reported By: Shabbir Lunsford MD ? CC: ? Transcribed Date/Time: 04/24/2015 (2073) ? Food Assembler: ? Printed Date/Time: 02/16/2019 (4702) ? PAGE 1 ? Signed Report ? Procedure Note Shabbir Lunsford MD - 07/13/2019 EXAM: RADIOLOGY/THUMB-RIGHT EX. D/ (1133) CLINICAL INFORMATION: S/P RIGHT THUMB INJURY. DONE AT [facility] INDICATION: Right thumb injury with pain TECHNIQUE: 3 views right thumb COMPARISON: None FINDINGS: There is a highly comminuted fracture of the shaft and proximal metaphysis of the right thumb proximal phalanx. Alignment remains near-anatomic. No additional fractures are seen. Impression: 1. Highly comminuted right thumb proximal phalanx shaft/proximal metaphysis fracture. REPORT SIGNED IN OTHER VENDOR SYSTEM 04/24/2015 Reported By: Shabbir Lunsford MD CC: Transcribed Date/Time: 04/24/2015 (2877) Food Assembler: Printed Date/Time: 02/16/2019 (5616) PAGE 1 Signed Report Albert Boswell MD IMG DIAGNOSTIC IMAGING ORDERABLES documented in this encounter Visit Diagnoses Not on filedocumented in this encounter Care Teams Etymology Professor Relationship Specialty Start Date End Date Vika Ventura NP PCP - General 04/04/15 11/14/20 documented as of this encounter
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
--- OUTSIDE RECORDS SUMMARY | 2024-03-19 06:10 | XMS_ITS | Encounter Summary ---
Author Organization [facility] Address [address] [place] [address] Care Team Providers Care Telephone Interviewer Name Role Phone Vika Ventura NP Primary Care Provider [phone] Encounter Details Date Type Department Care Team (Late st Contact Info) Description 03/17/2019 Historical Results Only [facility] - Main [address] [address] Austen Rosas PA-C [address] [place] [phone] Social History Tobacco Use Types Packs/Day [...] Procedure Name Priority Date/Time Associated Diagnosis Comments COMPLETE BLOOD COUNT WITH DIFFERENTIAL (AUTO) Routine 03/17/2019 18:30 EDT documented in this encounter Results * (ABNORMAL) COMPLETE BLOOD COUNT WITH DIFFERENTIAL (AUTO) (03/17/2019 18:30 EDT) ABSOLUTE NEUTROPHIL COUN - [facility] 5.7 2.2 - 8.85 10e3/uL 03/17/2019 19:09 [facility] BASO # - [facility] 0.03 0.01 - 0.11 10e/uL 03/17/2019 19:09 [facility] BASO % - [facility] 0 0 - 2 % 03/17/2019 19:09 [facility] EOS # - [facility] 0.33 0.03 - 0.61 10e3/ul 03/17/2019 19:09 [facility] EOS % - [facility] 4 0 - 5 % 03/17/2019 19:09 [facility] GRAN % - [facility] 69.8 40 - 80 % 03/17/2019 19:09 [facility] HEMATOCRIT - [facility] 34.3(L) 39.5 - 50.2 % 03/17/2019 19:09 [facility] Comment: Result called to DEAN ZAVALETA IN ED 03/17/19 1909: Result called by LIGIA HEMOGLOBIN - [facility] 11.4(L) 13.8 - 17.3 g/dl 03/17/2019 19:09 [facility] Comment: Result called to DEAN ZAVALETA IN ED 03/17/191908: Result called by LIGIA IG# - [facility] 0.02 0 - 0.7 10e3/uL 03/17/2019 19:09 [facility] IG% - [facility] 0.2 0 - 0.9 % 03/17/2019 19:09 [facility] LYMPH # - [facility] 1.6 1.09 - 3.3 10e3/ul 03/17/2019 19:09 [facility] LYMPH% - [facility] 19.5(L) 20 - 40 % 03/17/2019 19:09 [facility] MEAN CORPUSCULAR HGB - [facility] 28.9 27.6 - 33.0 pg 03/17/2019 19:09 [facility] MEAN CORPUSCULAR HGB CONC - [facility] 33.2 32.8 - 36.4 g/dL 03/17/2019 19:09 [facility] MEAN CELL VOLUME - [facility] 86.8 81 - 95 fl 03/17/2019 19:09 [facility] MONO # - [facility] 0.5 0.1 - 0.8 10e3/uL 03/17/2019 19:09 [facility] MONO% - [facility] 6.1 0 - 12 % 03/17/2019 19:09 [facility] PLATELET COUNT 244 141 - 377 10e3/ul 03/17/2019 19:09 [facility] RED BLOOD COUNT - [facility] 3.95(L) 4.36 - 5.78 10e3/ul 03/17/2019 19:09 [facility] RED CELL DISTRI WIDTH - [facility] 12.9 <14.2 % 03/17/2019 19:09 [facility] WHITE BLOOD COUNT - [facility] 8.2 4.0 - 10.4 10e3/ul 03/17/2019 19:09 [facility] 03/17/2019 18:3 0 EDT 03/17/2019 18:37 EDT Austen Rosas PA-C HEMATOLOGY & PF4 ORD ERABLES [facility] Organization Address City/State/ZIP Co de Phone Number [facility] documented in this encounter Visit Diagnoses Not on filedocumented in this encounter Care Teams Telephone Interviewer Relationship Specialty Start Date End Date Vika Ventura NP PCP - General 04/04/15 11/14/20 documented as of this encounter
--- OUTSIDE RECORDS SUMMARY | 2024-03-19 06:10 | XMS_ITS | Encounter Summary ---
Author Organization [facility] Address [address] [place] [address] Care Team Providers Care Dumbwaiter Operator Name Role Phone None, Provider Primary Care Provider Unavailabl e Encounter Details Date Type Department Care Team (Latest Contact Info) Description 01/23/2014 8:47 EDT - 01/23/2014 23:59 EDT Hospital Encounter [facility] [address] [place] [address] Unknown, Provider, Discharge Disposition: Home or Self Care Social History Tobacco Use Types Packs/Day Years Used Date Smoking Tobacco: Every Day Cigarettes Smokeless Tobacco: Former Sex and Gender Information Value Date Recorded Sex Assigned at Not on file Gender Identity Not on file Sexual Orientation Not on file documented as of this encounter Discharge Disposition Disposition Code Departure Means Destination Home or Self [facility] documented in this encounter Plan of Treatment Not on file documented as of this encounter Visit Diagnoses Not on filedocumented in this encounter Care Teams Dumbwaiter Operator Relationship Specialty Start Date End Date None, Provider PCP - General 03/12/12 04/03/15 documented as of this encounter
--- OUTSIDE RECORDS SUMMARY | 2024-03-19 06:10 | XMS_ITS | Clinical Summary ---
Author Organization [facility] Address [address] [place] [address] Care Team Providers Care Shoes Hand Sewer Name Role Phone Unavailable Primary Care Provider Unavailabl e Allergies No known active allergies Medications No known medications Active Problems No known active problems Family History Medical History Relation Comments Diabetes Mother Glaucoma Neg Hx Macular Degeneration Neg Hx Relation Status Comments Mother Social History Tobacco Use Types Packs/Day Years Used Date Smoking Tobacco: Every Day Cigarettes Smokeless Tobacco: Former Interpersonal Safety Answer Date Record ed Physically Hurt Never 04/09/2020 Verbally Threaten Not on file 04/09/2020 Sex and Gender Information Value Date Recorded Sex Assigned at Not on file Gender Identity Not on file Sexual Orientation Not on file Obstetrics History Plan of Treatment Health Maintenance Due Date Last Done Comments Hepatitis C Screen 1971 Social Determinants Of Health (SDOH) 1971 Depression Screening 1983 HIV Screening 1987 Advance Directive 1989 Preventive Care Visit 1989 Hepatitis B Vaccine (1 of 3 - 19+ 3-dose series) 10/14 Pertussis (Adult) Immunization 1990 Tetanus (Adult) Immunization 1990 Cologuard (Colon Cancer Screening) 2016 Colonoscopy (Colon Cancer Screening) 2016 Colorectal Cancer Screening 2016 FIT Test (Colon Cancer Screening) 2016 Sigmoidoscopy (Colon Cancer Screening) 2016 Lipid Profile Screening (Cholesterol) 09/25/2021 Shingles Immunization (1 of 2) 2021 COVID-19 Vaccine ( season) 2023 Influenza Immunization (Adult) (Season Ended) 20 24 Procedures Procedure Name Priority Date/Time Associated Diagnosis Comments LIPID PROFILE (INCLUDES CHOLESTEROL, TRIGLYCERIDES, HDL, LDL) Routine 09/25/2016 7:43 EST from Last 3 Months or Most Recently Relevant to Health Maintenance Results * (ABNORMAL) LIPID PROFILE (INCLUDES CHOLESTEROL, TRIGLYCERIDES, HDL, LDL) (09/25/2016 7:43 EST) Triglyceride 86 35 - 150 mg/dL 09/25/2016 12:22 EST [facility] Cholesterol 187 120 - 200 mg/dL 09/25/2016 12:22 [facility] Chol/HDL Ratio 3.7 0 - 5.0 09/25/2016 12:22 [facility] Comment: DESIRABLE RATIO IS LESS THAN 4.1 PATIENTS ARE CONSIDERED AT RISK: WOMEN RATIO >5 MEN RATIO >6 FASTING? [place] [facility] [place] 11:45 EST [facility] HDL 50 40 - 60 mg/dL 09/25/2016 12:22 [facility] LDL CHOLESTEROL - [facility] 120(H) 60 - 100 mg/dL 09/25/2016 12:22 [facility] Non HDL Cholesterol 137 mg/dl 09/25/2016 12:22 [facility] Comment: Desirable: ?Less than 130 Borderline High: ??130-159 High: ? 160-189 Very High: ?Greater than or equal to 190 09/25/2016 7:43 EST 09/25/2016 11:45 EST Vika Renteria Anti BAR HOSTESS CHEMISTRY & BLOOD G ORDERABLES [facility] from Last 3 Months or Most Recently Relevant to Health Maintenance
--- OUTSIDE RECORDS SUMMARY | 2024-03-19 06:10 | XMS_ITS | Encounter Summary ---
Author Organization [facility] Address [address] [place] [address] Care Team Providers Care Supervisor Pullet Farm Name Role Phone Vika Ventura NP Primary Care Provider Reason for Visit * Reason Onset Date Comments Eye Problem 04/06/2015 Encounter Details Date Type Department Care Team (Late st Contact Info) Description 04/06/[address] [facility] Ophthalmology - [place] [address] [place], [place] [address] Andreas Tolbert MD [address] [place] [phone] Eye Problem Social History Tobacco Use Types Packs/Day Years [...] No 04/04/2015 documented as of this encounter Miscellaneous Notes * Telephone Encounter - Reginaldo Esquivelee - 04/06/2015 1150 EDT Patient called and stated eye still feels like something is in it. Using Polytrim QID. Still a little light sensitive. No pain. When puts drops in eye gets a little blurry. Rec. Patient start artifical tears QID. Patient will call if no improvement. * Telephone Encounter - Kavitha Vasquez - 04/06/2015 0833 EDT Jose Daniel called, said he was instructed to call if symptoms got worse from Tuesdays visit for a Foreign body, right eye. He would like to speak to a tech to see if he should be seen today. Please call at [phone]. documented in this encounter Plan of Treatment Not on file documented as of this encounter Visit Diagnoses Not on filedocumented in this encounter Care Teams Supervisor Pullet Farm Relationship Specialty Start Date End Date Vika Ventura NP PCP - General 04/04/15 11/14/20 documented as of this encounter
--- OUTSIDE RECORDS SUMMARY | 2024-03-19 06:10 | XMS_ITS | Encounter Summary ---
Author Organization [facility] Address [address] [place] [address] Care Team Providers Care Public Information Director Name Role Phone Vika Ventura NP Primary Care Provider Encounter Details Date Type Department Care Team (Late st Contact Info) Description 07/29/2016 Historical Results Only [facility] Radiology Results [address] [place] [address] Ravi Casillas MD [address] [place] [phone] Social History Tobacco Use Types Packs/Day Years [...] Associated Diagnosis Comments XR ABDOMEN 1 VIEW 07/29/2016 8:41 EST documented in this encounter Results * XR ABDOMEN 1 VIEW (07/29/2016 8:41 EST) Anatomical Region Laterality Modality Body Other 07/29/2016 8:41 EST Narrative 07/29/2016 8:47 EST ? EXAM: RADIOLOGY/KUB 1V ?EX. D/ (0831) ? CLINICAL INFORMATION: ? N20.0 NEPHROLITHIASIS ? R/O RADIO-OPAQUE URINARY STONES ? KUB 1V ? Signs and Symptoms/Comments: N20.0 NEPHROLITHIASIS: R/O RADIO-OPAQUE ? URINARY STONES ? Comparison: 01/22/2016, 01/15/2016. CT abdomen pelvis on 01/08/2016. ? FINDINGS: ? AP supine views of the abdomen were performed. Bilateral renal ? calculi are again identified, measuring up to 5 mm in the upper pole ? of the left kidney. No definite calculi are identified along the ? expected course of the ureters. Tiny rounded calcifications in the ? left pelvis are stable and likely phleboliths. ? The bowel gas pattern is unremarkable. No acute osseous abnormality ? is identified. ? IMPRESSION: ? Bilateral renal calculi. ? REPORT SIGNED IN OTHER VENDOR SYSTEM 07/29/2016 ?Reported By: Paolo Zaidi MD ? CC: ? Transcribed Date/Time: 07/29/2016 (0847) ? [employer] Head: ? Printed Date/Time: 02/20/2019 (0156) ? PAGE 1 ? Signed Report ? Procedure Note Paolo Zaidi MD - 07/14/2019 EXAM: RADIOLOGY/KUB 1V EX. D/ (0831) CLINICAL INFORMATION: N20.0 NEPHROLITHIASIS R/O RADIO-OPAQUE URINARY STONES KUB 1V Signs and Symptoms/Comments: N20.0 NEPHROLITHIASIS: R/ORADIO-OPAQUE URINARY STONES Comparison: 01/22/2016, 01/15/2016. CT abdomen pelvis on 01/08/2016. FINDINGS: AP supine views of the abdomen were performed. Bilateral renal calculi are again identified, measuring up to 5 mm in the upperpole of the left kidney. No definite calculi are identified along the expected course of the ureters. Tiny rounded calcifications in the left pelvis are stable and likely phleboliths. The bowel gas pattern is unremarkable. No acute osseous abnormality is identified. IMPRESSION: Bilateral renal calculi. REPORT SIGNED IN OTHER VENDOR SYSTEM 07/29/2016 Reported By: Paolo Zaidi MD CC: Transcribed Date/Time: 07/29/2016 (0847) [employer] Head: Printed Date/Time: 02/20/2019 (0156) PAGE 1 Signed Report Ravi Casillas MD IMG DIAGNOSTIC IM AGING ORDERABLES documented in this encounter Visit Diagnoses Not on filedocumented in this encounter Care Teams Public Information Director Relationship Specialty Start Date End Date Vika Ventura NP PCP - General 04/04/15 11/14/20 documented as of this encounter
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
[2024-03-19] MEDS: Lactated Ringers 1,000 ML 80 ML IV (06:37)
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
[2024-03-19] MEDS: ceFAZolin 2 GM/50 ML BAG IVPB (07:33)
[2024-03-19] MEDS: Lidocaine 2% Jelly 11 ML SYR (07:57)
[2024-03-19] MEDS: Omnipaque 300 MG/ML 50 ML BTL (08:22)
--- NOTE | 2024-03-19 08:28 | W.PM.DSUDISC ---
Date of service: 03/19/24 Time of Service: 08:28 Discharge Plan Disposition Patient Disposition: Home Discharge Details Attending Provider: Jonah Ellison Primary Care Provider: Unknown,Unknown Home Meds and New Rx's Prescriptions: No Action acetaminophen [Tylenol] 325 mg capsule 650 mg PO Q6H PRN sildenafil [Viagra] 50 mg tablet 50 mg PO DAILY PRN (Reason: sexual activity) Qty: 4 0RF Rx Instructions: administer 30 minutes to 4 hours before activity (Take 1/2 tab) Discharge Instructions Additional Instructions: no need to strain urine followup appt early next week for stent removal (tell my office there is a string on the stent) additional followup appt 6 to 8 weeks for an ultrasound to be done in our office there is a stent in place so it is not unusual to see blood in the urine or have discomfort when you urinate Discharge Orders Discharge Orders: Discharge Order (Routine); Ordered 03/19/24 Ordered By: Jonah Ellison DS: Diagnosis Discharge Diagnosis (1) Ureteral stone: Status: Acute (2) Kidney stones: Status: Chronic
--- NOTE | 2024-03-19 08:30 | DI.RAD_ITS ---
Exam(s) XR RETROGRADE IN OR EXAM: XR RETROGRADE IN OR CLINICAL HISTORY: ureteral stent. TECHNIQUE: Fluoroscopy was provided for the referring physician for guidance with performing pain cl inic injection procedure. COMPARISON: XA XR RETROGRADE IN OR from 03/04/2024 FINDINGS: Please see procedure note for details. Fluoro time: 42.9 Seconds RADIATION DOSE DELIVERED: alejandra Torre=6.14 mGy
--- NOTE | 2024-03-19 08:32 | W.PM.OP ---
Date of service: 03/19/24 Time of Service: 08:32 Operative Note Operative Note DATE OF PROCEDURE: 03/19/24 PRE-OP DIAGNOSIS: left kidney stone POST-OP DIAGNOSIS: same PROCEDURE: cystoscopy, remove right ureteral stent, left retrograde pyelogram, left ureteroscopy with holmium laser lithotripsy, extraction of stone fragment, insert left ureteral stent SURGEON: Jonah Ellison ANESTHESIA TYPE: Local By Surgeon and General LMA/ETT Refer to Anesthesia Record ESTIMATED BLOOD LOSS: 5 PATHOLOGY: other (left kidney stone for chemical analysis) COMPLICATIONS: None Patient was transported to: PACU Patient's condition: stable Implants: 4.8 bengali by 22 to 30 cm length left ureteral stent Indications: This is a 53-year-old gentleman who presented with right-sided renal colic. He was found to have an obstructing right ureteral stone along with bilateral nonobstructing kidney stones. His symptoms improved but he did not pass the ureteral stone and based on a follow-up renal ultrasound, it appeared that the right ureteral stone was still at the right ureterovesical junction. He underwent right-sided ureteroscopy. We did not identify the ureteral stone, but we did extract his right renal stones. We left a ureteral stent in place. He presents now for right sided stent removal and ureteroscopy to treat his left-sided stones. Findings: stone in left upper pole calyx Procedure Description: The patient was brought to the operating room on 03/19/2024. He was given preprocedural IV antibiotics. After successful induction of general anesthesia, he was placed in the dorsal lithotomy position. His genitalia was prepped and draped. 2% Xylocaine jelly was instilled into the urethra to act as a local anesthetic. The 22 Sinhala rigid cystoscope was then passed through the urethra into the bladder. The urethra and bladder were inspected with the 30 degree lens. The pendulous, bulbar and membranous urethra was all appeared normal with no strictures. The prostatic urethra showed some lateral lobe enlargement but no significant median lobe. The bladder neck was then entered and the bladder mucosa was inspected. A stent could be seen protruding from the right ureteral orifice. The mucosa surrounding the orifice was quite edematous with bullous changes present. The stent was grasped with alligator forceps and removed in its entirety. The left ureteral orifice was then identified and was cannulated with a 5 Sinhala access catheter. Retrograde pyelogram was obtained by injecting Omnipaque through the access catheter under fluoroscopic guidance. No filling defects were seen in the left ureter. We were able to outline each of the left sided calyces. We then passed a guidewire through the lumen of the access catheter and removed the catheter. A dual-lumen catheter was then advanced over the wire and a second wire was positioned. We chose one of the wires as a working wire and the other as a safety wire. A ureteral access sheath was then advanced over the working wire and the working wire was removed leaving the safety wire in place. Flexible ureteroscopy was then performed and we identified a stone in the left upper pole calyx. We treated the stone with a 272 ?m holmium laser fiber. We used dusting settings of a power of 0.5 and a rate of 20. The stone fragmented very very nicely. We captured one of the small stone fragments and a 0 tip stone basket and extracted the fragments. We then sent the stone fragment to the lab for chemical analysis. At the completion of the procedure, each of the stone fragments appeared smaller than the diameter of our safety wire. We elected to place a 4.8 Sinhala variable length stent over the safety wire. The proximal end of the stent was curled in the upper pole calyx and the distal end was curled within the bladder. The positioning of the stent was confirmed both fluoroscopically and cystoscopically. The patient tolerated this procedure well with no complications. He was taken back to the recovery room in stable condition.
[2024-03-19] MEDS: ACETAMINOPHEN 1,000 MG/100 ML BTL 400 MG IVPB (08:55)
[2024-03-19] MEDS: fentaNYL 100 MCG/2 ML VIAL IVP (09:03)
--- NOTE | 2024-03-19 09:17 | W.ANESPOSTOP ---
Postoperative Evaluation Date, Time and Location Date Performed: 03/19/24 Time Performed: 09:17 Patient Location: PACU Vital Signs Most Recent Imported Vital Signs: Most Recent Vital Signs Temp Pulse Resp BP Pulse Ox 36.4 C L 56 L 21 109/67 96 03/19/24 09:05 03/19/24 09:05 03/19/24 09:05 03/19/24 09:05 03/19/24 09:05 Pain Score Most Recent Pain Score: Most Recent Pain Score Pain Level 4 03/19/24 09:15 Assessment Mental Status: Awake (Alert & Oriented to Patient Baseline) Airway and Respiratory Function: Patent airway with normal (patient baseline) respiratory exam Cardiovascular Function: Hemodynamically Stable Hydration Status: Adequately Hydrated Nausea & Vomiting: No Nausea or Vomiting Pain: Pain is tolerable per patient Peripheral Nerve Block: Patient did not receive a nerve block
[2024-03-19] MEDS: Phenazopyridine 200 MG TAB PO (09:28)
[2024-03-19] MEDS: traMADol 50 MG TAB PO (09:31)
[2024-03-29 09:41] LABS: Source: Left Kidney
== END 2024-03-19 10:37 | disposition home or self-care (01) ==
PROVIDERS: Visit Provider Urology
PROC: (CPT 52356; principal; 2024-03-19 07:30)
DX: N20.0 Calculus of kidney
CPT/HCPCS: 52356; 74420; 82365; J0131; J0690; J1100; J1805; J1885; J2405; J2704; J3010; Q9967

== ENCOUNTER 2024-07-13 16:16 | Outpatient (REF) | payer BC, SELFPAY ==
--- OUTSIDE RECORDS SUMMARY | 2024-07-13 16:18 | XMS_ITS | Encounter Summary ---
Author Organization [facility] Address [address] [place] [address] Care Team Providers Care Product Support Manager Name Role Phone Vika Ventura NP Primary Care Provider [phone] Encounter Details Date Type Department Care Team (Late st Contact Info) Description 09/25/2016 Historical Results Only [facility] - [address] [place] [address] [place] [address] Vika Ventura NP [address] [place] [id number] Social History Tobacco Use Types Packs/Day Years [...] 35 - 150 mg/dL 09/25/2016 12:22 EST [facility] Cholesterol 187 120 - 200 mg/dL 09/25/2016 12:22 [facility] Chol/HDL Ratio 3.7 0 - 5.0 09/25/2016 12:22 [facility] Comment: DESIRABLE RATIO IS LESS THAN 4.1 PATIENTS ARE CONSIDERED AT RISK: WOMEN RATIO >5 MEN RATIO >6 FASTING? - [facility] Yes 7 11:45 EST [facility] HDL 50 40 - 60 mg/dL 09/25/2016 12:22 [facility] LDL CHOLESTEROL - [facility] 120(H) 60 - 100 mg/dL 09/25/2016 12:22 [facility] Non HDL Cholesterol 137 mg/dl 09/25/2016 12:22 [facility] Comment: Desirable: ?Less than 130 Borderline High: ??130-159 High: ? 160-189 Very High: ?Greater than or equal to 190 09/25/2016 7:43 EST 09/25/2016 11:45 EST Narrative Authorizing Provider Result Herminio Ventura NP CHEMISTRY & BLOOD G ORDERABLES [facility] documented in this encounter Visit Diagnoses Not on filedocumented in this encounter Care Teams Product Support Manager Relationship Specialty Start Date End Date Vika Ventura NP PCP - General 04/04/15 11/14/20 documented as of this encounter
--- OUTSIDE RECORDS SUMMARY | 2024-07-13 16:18 | XMS_ITS | Encounter Summary ---
Author Organization [facility] Address [address] [place] [address] Care Team Providers Care Communication Equipment Mechanic Name Role Phone Vika Ventura NP Primary Care Provider Encounter Details Date Type Department Care Team (Late st Contact Info) Description 07/29/2016 Historical Results Only [facility] Radiology Results [address] [place] [address] Ravi Casillas MD [address] [place] [id number] Social History Tobacco Use Types Packs/Day Years [...] CC: ? Transcribed Date/Time: 07/29/2016 (0847) ? Open Shank Coverer: ? Printed Date/Time: 02/20/2019 (0156) ? PAGE [...] Zaidi MD CC: Transcribed Date/Time: 07/29/2016 (0847) Open Shank Coverer: Printed Date/Time: 02/20/2019 (0156) PAGE 1 Signed Report Ravi Casillas MD IMG DIAGNOSTIC IM AGING ORDERABLES documented in this encounter Visit Diagnoses Not on filedocumented in this encounter Care Teams Communication Equipment Mechanic Relationship Specialty Start Date End Date Vika Ventura NP PCP - General 04/04/15 11/14/20 documented as of this encounter
--- OUTSIDE RECORDS SUMMARY | 2024-07-13 16:18 | XMS_ITS | Encounter Summary ---
Author Organization [facility] Address [address] [place] [address] Care Team Providers Care Chief Controller Name Role Phone Vika Ventura PRISM INSPECTOR Primary Care Provider [phone] Encounter Details Date Type Department Care Team (Late st Contact Info) Description 12/28/2018 Historical Results Only [facility] Radiology Results [address] [place], [place] [address] Norma Khalil PA-C [address] [facility] [address] [place], [place] [address] Social History Tobacco Use Types Packs/Day Years [...] CC: ? Transcribed Date/Time: 12/28/2018 (1756) ? Model Builder Display: ? Printed Date/Time: 05/26/2019 (8790) ? PAGE 1 ? Signed Report ? [...] Jones DO CC: Transcribed Date/Time: 12/28/2018 (1756) Model Builder Display: Printed Date/Time: 05/26/2019 (8925) PAGE 1 Signed Report Norma Khalil PA-C IMG DIAGNOSTIC IMAGI NG ORDERABLES documented in this encounter Visit Diagnoses Not on filedocumented in this encounter Care Teams Chief Controller Relationship Specialty Start Date End Date Vika Ventura NP PCP - General 04/04/15 11/14/20 documented as of this encounter
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
--- OUTSIDE RECORDS SUMMARY | 2024-07-13 16:18 | XMS_ITS | Referral Summary ---
Author Organization [facility] Address [address] [place] [address] Care Team Providers Care Softball Player Name Role Phone Unavailable Primary Care Provider [...] 120 - 200 mg/dL 09/25/2016 12:22 EST [facility] Chol/HDL Ratio 3.7 0 - 5.0 09/25/2016 12:22 [facility] Comment: DESIRABLE RATIO IS LESS THAN 4.1 PATIENTS ARE CONSIDERED AT RISK: WOMEN RATIO >5 MEN RATIO >6 FASTING? - [facility] Yes 7 11:45 EST [facility] HDL 50 40 - 60 mg/dL 09/25/2016 12:22 [facility] LDL CHOLESTEROL - [facility] 120(H) 60 - 100 mg/dL 09/25/2016 12:22 [facility] Non HDL Cholesterol 137 mg/dl 09/25/2016 12:22 [facility] Comment: Desirable: ?Less than 130 Borderline High: ??130-159 High: ? 160-189 Very High: ?Greater than or equal to 190 09/25/2016 7:43 EST 09/25/2016 11:45 EST Vika Renteria Anti PORTABLE FEED MILL OPERATOR CHEMISTRY & BLOOD G ORDERABLES [facility] from Last 3 Months or Most Recently Relevant to Health Maintenance
--- OUTSIDE RECORDS SUMMARY | 2024-07-13 16:18 | XMS_ITS | Encounter Summary ---
Author Organization [facility] Address [address] [place] [address] Care Team Providers Care Quilt Maker Name Role Phone Vika Ventura NP Primary Care Provider Encounter Details Date Type Department Care Team (Late st Contact Info) Description 01/15/2016 Historical Results Only [facility] Radiology Results [address] [place] [address] Ravi Casillas MD [address] [place] [phone] Social History Tobacco Use Types Packs/Day Years [...] Casillas ? Transcribed Date/Time: 01/15/2016 (1213) ? Hand Ironer: ? Printed Date/Time: 02/19/2019 (0238) ? PAGE [...] CC: Ravi Casillas Transcribed Date/Time: 01/15/2016 (1213) Hand Ironer: Printed Date/Time: 02/19/2019 (8553) PAGE 1 Signed Report Ravi Casillas MD IMG DIAGNOSTIC IM AGING ORDERABLES documented in this encounter Visit Diagnoses Not on filedocumented in this encounter Care Teams Quilt Maker Relationship Specialty Start Date End Date Vika Ventura NP PCP - General 04/04/15 11/14/20 documented as of this encounter
--- OUTSIDE RECORDS SUMMARY | 2024-07-13 16:18 | XMS_ITS | Encounter Summary ---
Author Organization [facility] Address [address] [place] [address] Care Team Providers Care Revenue Field Agent Name Role Phone Vika Ventura STUDENT LIFE VICE PRESIDENT Primary Care Provider +1 [phone] Encounter Details Date Type Department Care Team (Late st Contact Info) Description 05/08/2015 Historical Results Only [facility] Radiology Results [address] [place] [address] Albert Boswell MD [address] [place] [address] Social History Tobacco Use Types Packs/Day Years [...] ? S/P RIGHT THUMB INJURY. DONE AT [facility] ? THUMB-RIGHT ??05/08/2015 11:51 AM ? Clinical [...] CC: ? Transcribed Date/Time: 05/08/2015 (1936) ? Coding Technician: ? Printed Date/Time: 02/16/2019 (2409) ? PAGE 1 ? Signed Report ? Procedure Note Jn Morrison MD - 07/13/2019 EXAM: RADIOLOGY/THUMB-RIGHT EX. D/ (1152) CLINICAL INFORMATION: S/P RIGHT THUMB INJURY. DONE AT [facility] THUMB-RIGHT 05/08/2015 11:51 AM Clinical History/Comments: Right [...] Morrison MD CC: Transcribed Date/Time: 05/08/2015 (1936) Coding Technician: Printed Date/Time: 02/16/2019 (7335) PAGE 1 Signed Report Albert Boswell MD IMG DIAGNOSTIC IMAGING ORDERABLES documented in this encounter Visit Diagnoses Not on filedocumented in this encounter Care Teams Revenue Field Agent Relationship Specialty Start Date End Date Vika Ventura NP PCP - General 04/04/15 11/14/20 documented as of this encounter
--- OUTSIDE RECORDS SUMMARY | 2024-07-13 16:18 | XMS_ITS | Encounter Summary ---
Author Organization [facility] Address [address] [place] [address] Care Team Providers Care Warehouse Insulation Worker Name Role Phone Vika Ventura NP Primary Care Provider [phone] [phone] Encounter Details Date Type Department Care Team (Late st Contact Info) Description 03/17/2019 Historical Results Only [facility] - [facility] Lab - Main [address] [address] Austen Rosas PA-C [address] [place] [phone] Social History Tobacco Use Types Packs/Day [...] 5.7 2.2 - 8.85 10e3/uL 03/17/2019 19:09 [facility] BASO # - [facility] 0.03 0.01 - 0.11 10e/uL 03/17/2019 19:09 [facility] BASO % - [facility] 0 0 - 2 % 03/17/2019 19:09 [facility] EOS # - [facility] 0.33 0.03 - 0.61 10e3/ul 03/17/2019 19:09 [facility] EOS % - [facility] 4 0 - 5 % 03/17/2019 19:09 [facility] GRAN % - [facility] 69.8 40 - 80 % 03/17/2019 19:09 [facility] HEMATOCRIT - [facility] 34.3(L) 39.5 - 50.2 % 03/17/2019 19:09 [facility] Comment: Result called to DEAN ZAVALETA IN ED 03/17/19 1909: Result called by LIGIA HEMOGLOBIN - [facility] 11.4(L) 13.8 - 17.3 g/dl 03/17/2019 19:09 [facility] Comment: Result called to DEAN ZAVALETA IN ED 03/17/19 190: Result called by LIGIA IG# - [facility] 0.02 0 - 0.7 10e3/uL 03/17/2019 19:09 [facility] IG% - [facility] 0.2 0 - 0.9 % 03/17/2019 19:09 [facility] LYMPH # - [facility] 1.6 1.09 - 3.3 10e3/ul 03/17/2019 19:09 [facility] LYMPH% - [facility] 19.5(L) 20 - 40 % 03/17/2019 19:09 [facility] MEAN CORPUSCULAR HGB - [facility] 28.9 27.6 - 33.0 pg 03/17/2019 19:09 [facility] MEAN CORPUSCULAR HGB CONC - [facility] 33.2 32.8 - 36.4 g/dL 03/17/2019 19:09 [facility] MEAN CELL VOLUME - [facility] 86.8 81 - 95 fl 03/17/2019 19:09 [facility] MONO # - [facility] 0.5 0.1 - 0.8 10e3/uL 03/17/2019 19:09 [facility] MONO% - [facility] 6.1 0 - 12 % 03/17/2019 19:09 [facility] PLATELET COUNT 244 141 - 377 10e3/ul 03/17/2019 19:09 [facility] RED BLOOD COUNT - [facility] 3.95(L) 4.36 - 5.78 10e3/ul 03/17/2019 19:09 [facility] RED CELL DISTRI WIDTH - [facility] 12.9 <14.2 % 03/17/2019 19:09 [facility] WHITE BLOOD COUNT - [facility] 8.2 4.0 - 10.4 10e3/ul 03/17/2019 19:09 [facility] 03/17/2019 18:3 0 EDT 03/17/2019 18:37 EDT Austen Rosas PA-C HEMATOLOGY & PF4 ORD ERABLES [facility] Organization Address City/State/ZIP Co de Phone Number [facility] documented in this encounter Visit Diagnoses Not on filedocumented in this encounter Care Teams Warehouse Insulation Worker Relationship Specialty Start Date End Date Vika Ventura NP PCP - General 04/04/15 11/14/20 documented as of this encounter
--- OUTSIDE RECORDS SUMMARY | 2024-07-13 16:18 | XMS_ITS | Encounter Summary ---
Author Organization [facility] Address [address] [place] [address] Care Team Providers Care Meteorology Faculty Member Name Role Phone Unavailable Primary Care Provider Unavailabl e Encounter Details Date Type Department Care Team (Late st Contact Info) Description 03/29/2021 Lab Requisition [facility] Pathology & Laboratory Medicine - [facility] [address] [place] [address] Outr Resulting Lab, Provider Social History Tobacco [...] 0.0 - 2.5 ng/mL 03/29/2021 21:29 EDT [facility] Blood VENOUS BLOOD / Unknown 03/29/2021 9:50 EDT 03/29/2021 20:29 EDT Narrative [facility] - 03/29/2021 21:29 EDT NOTE: Serum PSA concentration should not be interpreted as absolute evidence for the presence or absence of malignant disease. Assayed on Siemens [employer] XPT using chemiluminescent technology.??Values obtained by using different assay methods cannot be used interchangeably. Provider Outr Resulting Lab CHEMISTRY & BLOOD GAS ORDERABLES [facility] [address] [place] [address] documented in this encounter Visit Diagnoses Not on filedocumented in this encounter
--- OUTSIDE RECORDS SUMMARY | 2024-07-13 16:18 | XMS_ITS | Encounter Summary ---
Author Organization [facility] Address [address] [place] [address] Care Team Providers Care Kier Boiler Name Role Phone Vika Ventura CELL LEAD Primary Care Provider [phone] [phone] Encounter Details Date Type Department Care Team (Late st Contact Info) Description 04/24/2015 Historical Results Only [facility] Radiology Results [address] [place] [address] Albert Boswell MD [address] [place] [address] Social History Tobacco Use Types Packs/Day Years [...] S/P RIGHT THUMB INJURY. DONE AT [facility] ? INDICATION: Right thumb injury [...] MD ? CC: ? Transcribed Date/Time: 04/24/2015 (8303) ? Anesthesiology Physician: ? Printed Date/Time: 02/16/2019 (6104) ? PAGE 1 ? Signed Report ? Procedure Note Shabbir Lunsford MD - 07/13/2019 EXAM: RADIOLOGY/THUMB-RIGHT EX. D/ (1133) CLINICAL INFORMATION: S/P RIGHT THUMB INJURY. DONE AT [facility] INDICATION: Right thumb injury with [...] Shabbir Lunsford MD CC: Transcribed Date/Time: 04/24/2015 (3017) Anesthesiology Physician: Printed Date/Time: 02/16/2019 (6591) PAGE 1 Signed Report Albert Boswell MD IMG DIAGNOSTIC IMAGING ORDERABLES documented in this encounter Visit Diagnoses Not on filedocumented in this encounter Care Teams Kier Boiler Relationship Specialty Start Date End Date Vika Ventura NP PCP - General 04/04/15 11/14/20 documented as of this encounter
--- OUTSIDE RECORDS SUMMARY | 2024-07-13 16:18 | XMS_ITS | Encounter Summary ---
Author Organization [facility] Address [address] [place] [address] Care Team Providers Care Swing Saw Operator Name Role Phone Vika Ventura NP Primary Care Provider [phone] Encounter Details Date Type Department Care Team (Latest Contact Info) Description 10/12/2016 11:07 EST - 10/12/2016 23:[address] [facility] [address] [place] [address] Unknown, Provider, MD Discharge Disposition: Home or Self Care Social [...] Code Departure Means Destination Home or Self Residential documented in this encounter Plan of Treatment Not on file documented as of this encounter Visit Diagnoses Not on filedocumented in this encounter Care Teams Swing Saw Operator Relationship Specialty Start Date End Date Vika Ventura NP PCP - General 04/04/15 11/14/20 documented as of this encounter
--- OUTSIDE RECORDS SUMMARY | 2024-07-13 16:18 | XMS_ITS | Encounter Summary ---
Author Organization [facility] Address [address] [place] [address] Care Team Providers Care Powerhouse Laborer Name Role Phone Vika Ventura NP Primary Care Provider Encounter Details Date Type Department Care Team (Late st Contact Info) Description 01/22/2016 Historical Results Only [facility] Radiology Results [address] [place] [address] Ravi Casillas MD [address] [place] [phone] Social History Tobacco Use Types Packs/Day Years [...] Casillas ? Transcribed Date/Time: 01/22/2016 (0936) ? Metal Technician: ? Printed Date/Time: 02/19/2019 (0238) ? PAGE [...] CC: Ravi Casillas Transcribed Date/Time: 01/22/2016 (0936) Metal Technician: Printed Date/Time: 02/19/2019 (0238) PAGE 1 Signed Report Ravi Casillas MD IMG DIAGNOSTIC IM AGING ORDERABLES documented in this encounter Visit Diagnoses Not on filedocumented in this encounter Care Teams Powerhouse Laborer Relationship Specialty Start Date End Date Vika Ventura NP PCP - General 04/04/15 11/14/20 documented as of this encounter
--- OUTSIDE RECORDS SUMMARY | 2024-07-13 16:18 | XMS_ITS | Encounter Summary ---
Author Organization [facility] Address [address] [place] [address] Care Team Providers Care Cardiac Surgeon Name Role Phone Vika Ventura NP Primary Care Provider +1 [phone] Encounter Details Date Type Department Care Team (Latest Contact Info) Description 07/29/2016 13:24 EST - 07/29/2016 23:59 EST Hospital Encounter [address] [address] Unknown, Provider, MD Discharge Disposition: Home or [...] on filedocumented in this encounter Care Teams Cardiac Surgeon Relationship Specialty Start Date End Date Vika Ventura NP PCP - General 04/04/15 11/14/20 documented as of this encounter
--- OUTSIDE RECORDS SUMMARY | 2024-07-13 16:18 | XMS_ITS | Encounter Summary ---
Author Organization [facility] Address [address] [place] [address] Care Team Providers Care Instant Potato Processor Name Role Phone Vika Ventura SPA MANAGER/ESTHETICIAN Primary Care Provider +1 [phone] Encounter Details Date Type Department Care Team (Late st Contact Info) Description 10/12/2016 Historical Results Only [facility] Radiology Results [address] [place] [address] Héctor Slade MD Social History Tobacco Use [...] CC: ? Transcribed Date/Time: 10/12/2016 (1041) ? Respiratory Manager: ? Printed Date/Time: 02/20/2019 (2610) ? PAGE 1 ? Signed Report ? [...] Schneider MD CC: Transcribed Date/Time: 10/12/2016 (1041) Respiratory Manager: Printed Date/Time: 02/20/2019 (7392) PAGE 1 Signed Report Héctor Slade MD IMG DIAGNOSTIC KAREN GING ORDERABLES documented in this encounter Visit Diagnoses Not on filedocumented in this encounter Care Teams Instant Potato Processor Relationship Specialty Start Date End Date Vika Ventura NP PCP - General 04/04/15 11/14/20 documented as of this encounter
--- OUTSIDE RECORDS SUMMARY | 2024-07-13 16:18 | XMS_ITS | Encounter Summary ---
Author Organization [facility] Address [address] [place] [address] Care Team Providers Care Pickle Maker Name Role Phone Vika Ventura MAKING LINE WORKER Primary Care Provider +1 [phone] Encounter Details Date Type Department Care Team (Late st Contact Info) Description 01/08/2016 Historical Results Only [facility] Radiology Results [address] [place] [address] Leonardo Benoit MD [address] [place] [address] Social History Tobacco Use Types [...] CC: ? Transcribed Date/Time: 01/08/2016 (1140) ? [employer] Membership Advisors: ? Printed Date/Time: 02/19/2019 (0238) ? PAGE [...] Wagner MD CC: Transcribed Date/Time: 01/08/2016 (1140) [employer]: Printed Date/Time: 02/19/2019 (5109) PAGE 1 Signed Report Leonardo Benoit MD IMG CT ORDERABLES documented in this encounter Visit Diagnoses Not on filedocumented in this encounter Care Teams Pickle Maker Relationship Specialty Start Date End Date Vika Ventura NP PCP - General 04/04/15 11/14/20 documented as of this encounter
--- OUTSIDE RECORDS SUMMARY | 2024-07-13 16:18 | XMS_ITS | Encounter Summary ---
Author Organization [facility] Address [address] [place] [address] Care Team Providers Care School Aide Name Role Phone Vika Ventura NP Primary Care Provider [phone] Encounter Details Date Type Department Care Team (Latest Contact Info) Description 01/08/2016 14:35 EDT - 01/08/2016 23:59 EDT Hospital Encounter [facility] [address] [place] [address] Unknown, Provider, MD Discharge Disposition: Home or [...] on filedocumented in this encounter Care Teams School Aide Relationship Specialty Start Date End Date Vika Ventura NP PCP - General 04/04/15 11/14/20 documented as of this encounter
--- OUTSIDE RECORDS SUMMARY | 2024-07-13 16:18 | XMS_ITS | Encounter Summary ---
Author Organization [facility] Address [address] [place] [address] Care Team Providers Care Industrial Safety And Health Manager Name Role Phone Vika Ventura NP Primary Care Provider [phone] Encounter Details Date Type Department Care Team (Latest Contact Info) Description 03/12/2019 9:14 EDT - 03/12/2019 23:59 EDT Hospital Encounter [facility] [address] [place] [address] Unknown, Provider, MD Discharge Disposition: Home or [...] on filedocumented in this encounter Care Teams Industrial Safety And Health Manager Relationship Specialty Start Date End Date Vika Ventura NP PCP - General 04/04/15 11/14/20 documented as of this encounter
--- OUTSIDE RECORDS SUMMARY | 2024-07-13 16:18 | XMS_ITS | Clinical Summary ---
Author Organization [facility] Address [address] [place] [address] Care Team Providers Care Installation Helper Name Role Phone Unavailable Primary Care Provider [...] Immunization (1 of 2) 2021 COVID-19 Vaccine (24 season) 2023 Influenza Immunization (Adult) (#1) 2024 Procedures Procedure Name Priority Date/Time Associated Diagnosis Comments LIPID PROFILE (INCLUDES CHOLESTEROL, TRIGLYCERIDES, HDL, LDL) Routine 09/25/2016 7:43 EST from Last 3 Months or Most Recently Relevant to Health Maintenance Results * (ABNORMAL) LIPID PROFILE (INCLUDES CHOLESTEROL, TRIGLYCERIDES, HDL, LDL) (09/25/2016 7:43 EST) Triglyceride 86 35 - 150 mg/dL 09/25/2016 12:22 EST [facility] Cholesterol 187 120 - 200 mg/dL 09/25/2016 12:22 [facility] Chol/HDL Ratio 3.7 0 - 5.0 09/25/2016 12:22 [facility] Comment: DESIRABLE RATIO IS LESS THAN 4.1 PATIENTS ARE CONSIDERED AT RISK: WOMEN RATIO >5 MEN RATIO >6 FASTING? - [facility] Yes 11:45 EST [facility] HDL 50 40 - 60 mg/dL 09/25/2016 12:22 [facility] LDL CHOLESTEROL - [facility] 120(H) 60 - 100 mg/dL 09/25/2016 12:22 [facility] Non HDL Cholesterol 137 mg/dl 09/25/2016 12:22 [facility] Comment: Desirable: ?Less than 130 Borderline High: ??130-159 High: ? 160-189 Very High: ?Greater than or equal to 190 09/25/2016 7:43 EST 09/25/2016 11:45 EST Vika Renteria Anti DIAPHRAGM BUILDER CHEMISTRY & BLOOD G ORDERABLES [facility] from Last 3 Months or Most Recently Relevant to Health Maintenance
--- OUTSIDE RECORDS SUMMARY | 2024-07-13 16:19 | XMS_ITS | Encounter Summary ---
Author Organization [facility] Address [address] [place] [address] Care Team Providers Care Field Laboratory Operator Name Role Phone None, Provider Primary Care Provider Unavailabl e Reason for Visit * Reason Comments Foreign Body in Eye [facility]erred [facility] for FB in right eye Encounter Details Date Type Department Care Team (Late st Contact Info) Description 03/13/2012 10:45 EDT Office Visit [facility] Ophthalmology [facility] [address] [place] [address] Marilou Ayala [address] [place] [address] Social History Tobacco Use Types Packs/Day Years [...] feels fb sensation and irritation. Went to [facility] and was referred here. Modifying factors: [...] fátima ctive Lens Clear Clear Care Teams Field Laboratory Operator Relationship Specialty Start Date End Date None, Provider PCP - General 03/12/12 04/03/15 documented as of this encounter
--- OUTSIDE RECORDS SUMMARY | 2024-07-13 16:19 | XMS_ITS | Encounter Summary ---
Author Organization [facility] Address [address] [place] [address] Care Team Providers Care Biofuels Production Manager Name Role Phone Vika Ventura FASHION JOURNALIST Primary Care Provider Reason for Visit * Reason Comments Eye Problem FB right eye since l ast night Encounter Details Date Type Department Care Team (Late st Contact Info) Description 04/04/2015 8:45 EDT Office Visit [facility] Ophthalmology [facility] [address] [place] [address] Andreas Tolbert MD [address] [place] [phone] Social History Tobacco Use Types Packs/Day Years [...] Musculoskeletal: Integumentary: Neurologic: Psychiatric: Endocrine: Hematologic: Immunologic: Certified Nursing Assistant: Exposures: None Other: Attestation: Base Eye Exam [...] well. I completed this exam personally. Andreas Tolbert MD I am scribing for Andreas Tolbert [...] 0.2 0.25 Macula Normal Normal Care Teams Biofuels Production Manager Relationship Specialty Start Date End Date Vika Ventura NP PCP - General 04/04/15 11/14/20 documented as of this encounter
--- OUTSIDE RECORDS SUMMARY | 2024-07-13 16:19 | XMS_ITS | Encounter Summary ---
Author Organization [facility] Address [address] [place] [address] Care Team Providers Care Bulk Intake Worker Name Role Phone Vika Ventura NP Primary Care Provider [phone] Reason for Visit * Reason Onset Date Comments Eye Problem 04/06/2015 Encounter Details Date Type Department Care Team (Late st Contact Info) Description 04/06/2015 Telephone [facility] Ophthalmology - [place] [address] [place], [place] [id number] Andreas Tolbert MD [address] [place] [phone] Eye Problem Social History Tobacco Use Types [...] encounter Miscellaneous Notes * Telephone Encounter - Alvin Milagros - 04/06/2015 1150 EDT Patient called and [...] should be seen today. Please call at [phone]. documented in this encounter Plan of Treatment Not on file documented as of this encounter Visit Diagnoses Not on filedocumented in this encounter Care Teams Bulk Intake Worker Relationship Specialty Start Date End Date Vika Ventura NP PCP - General 04/04/15 11/14/20 documented as of this encounter
--- OUTSIDE RECORDS SUMMARY | 2024-07-13 16:19 | XMS_ITS | Encounter Summary ---
Author Organization [facility] Address [address] [place] [address] Care Team Providers Care Unemployment Insurance Director Name Role Phone Vika Ventura FACILITY SECURITY OFFICER Primary Care Provider [phone] Encounter Details Date Type Department Care Team (Late st Contact Info) Description 04/16/[address] [facility] Radiology Results [address] [place] [address] Lashawn Christensen NP [address] [place] [address] [place] [address] Social History Tobacco Use Types Packs/Day Years [...] CC: ? Transcribed Date/Time: 04/16/2015 (1034) ? Lunchroom Food Service Supervisor: ? Printed Date/Time: 02/16/2019 (6894) ? PAGE 1 ? Signed Report ? [...] Montoya MD CC: Transcribed Date/Time: 04/16/2015 (1034) Lunchroom Food Service Supervisor: Printed Date/Time: 02/16/2019 (7714) PAGE 1 Signed Report Lashawn Christensen NP IMG DIAGNOSTIC IMAGI NG ORDERABLES documented in this encounter Visit Diagnoses Not on filedocumented in this encounter Care Teams Unemployment Insurance Director Relationship Specialty Start Date End Date Vika Ventura NP PCP - General 04/04/15 11/14/20 documented as of this encounter
--- OUTSIDE RECORDS SUMMARY | 2024-07-13 16:19 | XMS_ITS | Encounter Summary ---
Author Organization [facility] Address [address] [place] [address] Care Team Providers Care Forging Machine Hand Name Role Phone None, Provider Primary Care Provider Unavailabl e Encounter Details Date Type Department Care Team (Latest Contact Info) Description 01/23/2014 8:47 EDT - 01/23/2014 23:59 EDT Hospital Encounter [facility] [address] [place] [address] Unknown, Provider, MD Discharge Disposition: Home or [...] Code Departure Means Destination Home or Self Senior Care documented in this encounter Plan of Treatment Not on file documented as of this encounter Visit Diagnoses Not on filedocumented in this encounter Care Teams Forging Machine Hand Relationship Specialty Start Date End Date None, Provider PCP - General 03/12/12 04/03/15 documented as of this encounter
[2024-07-13 20:49] LABS: ALT 31 U/L (16-63); AST 18 U/L (15-37); Albumin 3.9 g/dL (3.4-5.0); Alkaline Phosphatase 104 U/L (46-116); Anion Gap 8.9 mmol/L (3-11); BUN 22 mg/dL (7-18); Bilirubin, Total 0.28 mg/dL (0.2-1.0); CO2 29.1 mmol/L (21.0-32.0); CREATININE 1.2 mg/dL (0.70-1.30); Calcium 9.4 mg/dL (8.5-10.1); Calculated LDL 119 mg/dL (<100); Chloride 106 mmol/L (98-107); Cholesterol 207 mg/dL (<200); Estimated GFR 72.76 (mL/min/1.73m2); Glucose 97 mg/dL (74-106); HDL Cholesterol 39 mg/dL (40-60); Potassium 4.2 mmol/L (3.5-5.1); Sodium 144 mmol/L (136-145); Total Protein 7.4 g/dL (6.4-8.2); Triglyceride 246 mg/dL (<150)
[2024-07-14 19:15] LABS: HIV-1/2 Ag & Ab Screen Negative (Negative)
[2024-07-14 19:17] LABS: Hepatitis C Ab w Rflx HCV PCR Negative (Negative)
== END 2024-07-13 16:17 | disposition home or self-care (01) ==
LOC: NCHCN 16:16
PROVIDERS: PCP Nurse Practitioner Family; Visit Provider Nurse Practitioner Family
DX: Z00.00 Encounter for general adult medical examination without abnormal findings (principal)
CPT/HCPCS: 80053; 80061; 86803; 87389

== ENCOUNTER 2024-12-21 15:48 | Emergency (ER) | payer BC, SELFPAY ==
[2024-12-21 15:53] VITALS: BP 136/83; PULSE 80; RESP 15; TEMP 36.4; O2SAT 97
[2024-12-21 15:56] VITALS: BP 136/83; PULSE 80; RESP 15; TEMP 36.4; O2SAT 97
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
[2024-12-21] MEDS: Ketorolac 15 MG/ML VIAL IVP (16:26)
[2024-12-21] MEDS: Normal Saline Flush 10 ML SYR IVP (16:27)
[2024-12-21 16:38] LABS: Bilirubin Negative (Negative); Blood Negative (Negative); Clarity Cloudy (Clear); Glucose Negative (Negative); Ketones Negative (Negative); Leukocyte Esterase Negative (Negative); Nitrite Negative (Negative); Urobilinogen 0.2 mg/dL (Up to 0.2)
[2024-12-21 16:41] LABS: Abs Immature Grans 0.01 10^3/uL (0.0-0.06); Absolute Basophil Count 0.05 10^3/uL (0.0-0.2); Absolute Eosinophil Count 0.32 10^3/uL (0.0-0.7); Absolute Lymphocyte Count 2.68 10^3/uL (1.2-3.4); Absolute Monocyte Count 0.48 10^3/uL (0.1-0.8); Basophils % 0.6 %; Eosinophils % 3.7 %; HCT 46.5 % (40.0-50.0); HGB 15.1 g/dL (13.5-17.5); Immature Grans % 0.1 %; Lymphocytes % 31.4 %; MCH 28.8 pg (27.0-33.0); MCHC 32.5 % (32.0-36.0); MCV 89 fL (80-95); MPV 9.3 fL (8.0-11.0); Monocytes % 5.6 %; Neutrophils % 58.6 %; Platelet Count 252 10^3/uL (130-400); RBC 5.25 10^6/uL (4.36-5.78); RDW 13.2 % (11.8-14.1); RDW-SD 42.9 fL; WBC 8.54 10^3/uL (4.4-10.8)
[2024-12-21 16:53] LABS: ALT 29 U/L (16-63); AST 17 U/L (15-37); Alkaline Phosphatase 98 U/L (46-116); BUN 14 mg/dL (7-18); Bilirubin, Total 0.3 mg/dL (0.2-1.0); CREATININE 1.1 mg/dL (0.70-1.30); Calcium 9.4 mg/dL (8.5-10.1); Chloride 106 mmol/L (98-107); Estimated GFR 80.27 (mL/min/1.73m2); Glucose 93 mg/dL (74-106); Lipase 49 U/L (<78); Potassium 3.9 mmol/L (3.5-5.1); Sodium 142 mmol/L (136-145); Total Protein 7.7 g/dL (6.4-8.2)
--- NOTE | 2024-12-21 17:15 | DI.CT_ITS ---
Exam(s) CT ABDOMEN PELVIS W EXAM: CT ABDOMEN PELVIS W CLINICAL HISTORY: L flank pain, occasional tender to palpation.. TECHNIQUE: Imaging Protocol: Axial computed tomography images with coronal and sagittal reformatted images were created and reviewed CONTRAST MATERIAL: Intravenous: Omnipaque-350 75cc Oral: None COMPARISON: CT CT RENAL COLIC WO from 12/28/2023 FINDINGS: VISUALIZED LUNG BASES: No infiltrates nor pleural effusions nor significant nodules.. ABDOMEN: There is no ascites. LIVER: There are no focal hepatic lesions evident. No dilated intrahepatic ducts. GALLBLADDER/BILIARY: No obvious gallbladder pathology. CBD is not dilated. PANCREAS: No evidence of pancreatic mass nor dilatation of the pancreatic duct. SPLEEN: Spleen is not enlarged. No obvious intrasplenic lesions. Splenic and portal veins are paten t. ADRENALS: There are no significant adrenal masses. KIDNEYS:There is a punctate nonobstructive calculus in the right kidney.. There are no radiopaque ca lculi in the left kidney. No hydronephrosis on either side. No significant renal cysts. No solid r enal masses. No hydronephrosis nor hydroureter.. ABDOMINAL AORTA: Abdominal aorta is not enlarged. LYMPH NODES:There is no retroperitoneal nor paraaortic adenopathy. ABDOMINAL WALL: No evidence of significant anterior abdominal wall nor inguinal hernia. GI: There is no evidence of bowel obstruction, free air, nor abscess. PELVIS: GI: No evidence of appendicitis.No evidence of sigmoid diverticulitis. LYMPH NODES: There is no intrapelvic nor inguinal adenopathy. REPRODUCTIVE: Prostate size normal. Seminal vesicles unremarkable. URINARY BLADDER: No calculi nor obvious masses evident OSSEOUS: No fractures and no significant osseous lesions. Chronic advanced disc space narrowing at L5-S1 level noted. No listhesis. IMPRESSION: 1. There is a nonobstructive small calculus in the right kidney. No obvious calculi in left kidney. No obstruction of the urinary tracts (as was evident in December 2023). 2. No evidence of appendicitis nor acute diverticulitis. Report called by myself to ER provider 12/21/2024 at 6:38 p.m. RADIATION DOSE DELIVERED: 375.07mGy.cm Total DLP DATA REPOSITORY: All CT scans at this facility are submitted to the National Radiology Data Registry (NRDR) Dose Index Registry (DIR) with the [employer] (A[employer]). RADIATION OPTIMIZATION: All CT scans at this facility use at least one of these dose optimization te chniques: automated exposure control; mA and/or kV adjustment per patient size (includes targeted exa ms where dose is matched to clinical indication); or iterative reconstruction.
[2024-12-21] MEDS: Normal Saline - Diluent 50 ML VIAL IJ (18:05)
[2024-12-21] MEDS: Omnipaque 350 MG/ML 100 ML BTL 75 ML IJ (18:05)
[2024-12-21 18:19] VITALS: BP 130/79; PULSE 68; RESP 16; O2SAT 98
[2024-12-21 19:18] VITALS: BP 119/82; PULSE 75; RESP 20; TEMP 36.6; O2SAT 97
== END 2024-12-21 19:19 | disposition home or self-care (01) ==
PROVIDERS: Emergency Provider Nurse Practitioner Family; PCP Nurse Practitioner Family
DX: R10.9 Unspecified abdominal pain (principal); N20.0 Calculus of kidney; E78.5 Hyperlipidemia, unspecified; Z87.891 Personal history of nicotine dependence
CPT/HCPCS: 36415; 80053; 83690; 96374; 99285; 74177; 81003; 85025; J1885; J3490

== ENCOUNTER 2025-01-10 09:06 | Day surgery (SDC) | payer BC, SELFPAY ==
--- NOTE | 2025-01-09 06:51 | W.PM.DSUDISC ---
Date of service: 01/10/25 Discharge Plan Disposition Patient Disposition: Home Condition: Good Discharge Details Reason For Visit: screening colonoscopy Attending Provider: Wei Michael Primary Care Provider: RODOLFO FAN Home Meds and New Rx's Prescriptions: Continued acetaminophen [Tylenol] 325 mg capsule 650 mg PO Q6H PRN sildenafil [Viagra] 50 mg tablet 50 mg PO DAILY PRN (Reason: sexual activity) Qty: 4 0RF Rx Instructions: administer 30 minutes to 4 hours before activity (Take 1/2 tab) Discontinued bisacodyl [Dulcolax (bisacodyl)] 5 mg tablet,delayed release (DR/EC) 5 mg PO ONCE Qty: 4 0RF Rx Instructions: Take per colonoscopy instructions provided by ordering providers office polyethylene glycol 3350 17 gram/dose powder 17 g PO ONCE Qty: 238 0RF Rx Instructions: Take per colonoscopy instructions provided by ordering providers office Discharge Instructions Instructions: Colon polyps Additional Instructions: Jose Daniel, it was great meeting you today, and I hope you feel well after the procedure. Things went very smoothly. Your prep was excellent, and I could see everything fine. I did find to remove 1 polyp today. This will be sent off for testing, since polyps, different varieties, we use the information from the report to help guide timing of future colonoscopies. If you need anything or have any questions at all, please do not hesitate to ask, otherwise my office will be in touch once we have the polyp analysis complete. 1. If tolerated, consume a soft, low fiber diet for 1-2 days. 2[address] Do not drive, drink alcohol, operate machinery, make critical decisions, or do activities that require coordination or balance for 24 hours. 3. Because air was put into your colon during the procedure, expelling air from your rectum (passing gas or farting) is normal. 4. You may not have a bowel movement for 1-3 days because of the colonoscopy prep. This is normal. 5. Go directly to the emergency room if you notice any of the following: Develop chills (warm to touch), or if you have a thermometer and your temperature is above 101 Difficulty breathing or difficultly swallowing Persistent vomiting Severe abdominal pain, other than gas cramps Severe chest pain Black, tarry stools Any bleeding ? exceeding one tablespoon 6. Call your physician if the site where your intravenous was started becomes red, swollen, painful, and warm to touch. 7. Your physician has reviewed your pre-procedure medications. Please continue to take those medications as previously ordered. You will be given specific information/education regarding any changes to your medications before leaving. Stand Alone Forms: Anesthesia Discharge InstJuan David Valente (DSU) Activity:: Activity as Tolerated Diet:: As Tolerated Discharge Orders Discharge Orders: Discharge Order (Routine); Ordered 01/09/25 Ordered By: Wei Michael DS: Diagnosis Discharge Diagnosis (1) Encounter for screening colonoscopy: Status: Acute Asessment and Plan: Follow-up on polypectomy results
--- NOTE | 2025-01-09 06:53 | COLE_ITS ---
Date of service: 01/10/25 Time of Service: 12:33 Colonoscopy Report Date of procedure: 01/10/25 Pre-op diagnosis general: screening colonoscopy Post-op diagnosis procedure note: other (Colon polyp) Procedure: colonoscopy with polypectomy Surgeon: Wei Michael Anesthesia Type: General:No Airway Estimated blood loss (mL): 5 Pathology: other (Transverse colon polyp) Complications: None Disposition: same day Indications: Jsoe Daniel is a 54 year old man who needs a screening colonoscopy Prep: Miralax/Dulcolax Procedure Start Time: 11:55 Procedure End Time: 12:18 Retraction Time: 10 Findings: Pedunculated transverse colon polyp Procedure Description: After the induction of monitored anesthetic care, and with the patient in left lateral decubitus position, I began by performing an external anorectal exam.? Perineum and skin were normal, as was the anal verge.? There was no evidence of external hemorrhoids.? Next, I performed a digital rectal exam.? I did not appreciate any abnormal findings.? Next, I advanced a colonoscope into the rectal vault.? I performed retroflexion.? This appeared normal.? Using insufflation, I then advanced the colonoscope beyond the rectal folds and into the sigmoid colon before advancing towards the cecum.? The quality of the prep was excellent.? Just distal to the hepatic flexure, in the transverse colon, was a large pedunculated polyp. The stalk was well-defined. This was removed with cold snare polypectomy. There was minimal bleeding. I continued advancing. The scope was noted to be in the cecum by identification of the ileocecal valve and appendiceal orifice.? I then began withdrawing the colonoscope using repeated irrigation as necessary for full evaluation of the colonic mucosa. ?Once the scope was withdrawn to the level of the rectum, great care was taken to examine portions of the rectal folds.? Finally, the scope was withdrawn and the patient was brought to the same-day surgery recovery unit as the anesthetic wore off. ?The findings and instructions were shared with the patient prior to discharge. Cathay Bowel Prep Cathay Bowel Prep Right Colon: 3 Left Colon: 3 Transverse Colon: 3 Total Score: 9
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
[2025-01-10 09:29] VITALS: BP 116/81; PULSE 99; RESP 20; TEMP 36.1; O2SAT 96
[2025-01-10] MEDS: Lactated Ringers 1,000 ML 80 ML IV (09:38)
[2025-01-10 09:57] VITALS: BMI 24.9
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
--- NOTE | 2025-01-10 12:04 | BOWEL_PTH ---
PATIENT: Jose Daniel Flores LOC: [facility] U#:[id number] AGE/SX: 54/M ROOM: RE01/10/[address]: Wei Michael MD : 1970 BED: DIS: 01/10/2025 SPEC #: [id number] RECD: 01/10/25 13:35 STATUS: MAURICIO REQ #: [id number] RAJAN: 01/10/25 12:[address]: Wei Michael DEPT: Surgical Specimen RECD BY: Silvia Gonzales ENTERED: 01/10/25 13:36 SP TYPE: Bowel OTHR DR: RODOLFO FAN NP Tissues: 1 - BIOPSY BOWEL Procedures: GROSS AND MICRO LEVEL 4 Comments: [id number]
[2025-01-10 12:25] VITALS: BP 112/79; PULSE 72; RESP 16; TEMP 36; O2SAT 98
--- NOTE | 2025-01-10 12:49 | W.ANESPOSTOP ---
Postoperative Evaluation Date, Time and Location Date Performed: 01/10/25 Time Performed: 12:49 Patient Location: Day Surgery Unit Vital Signs Most Recent Imported Vital Signs: Most Recent Vital Signs Temp Pulse Resp BP Pulse Ox 36 C L 72 16 112/79 98 01/10/25 12:25 01/10/25 12:25 01/10/25 12:25 01/10/25 12:25 01/10/25 12:25 Pain Score Most Recent Pain Score: Most Recent Pain Score Pain Level 0 01/10/25 12:25 Assessment Mental Status: Awake (Alert & Oriented to Patient Baseline) Airway and Respiratory Function: Patent airway with normal (patient baseline) respiratory exam Cardiovascular Function: Hemodynamically Stable Hydration Status: Adequately Hydrated Nausea & Vomiting: No Nausea or Vomiting Pain: Pt. Denies Any Pain Peripheral Nerve Block: Patient did not receive a nerve block
[2025-01-10 12:56] VITALS: BP 111/74; PULSE 76; RESP 17; TEMP 36.5; O2SAT 97
== END 2025-01-10 13:02 | disposition home or self-care (01) ==
LOC: SUR 09:07
PROVIDERS: PCP Nurse Practitioner Family; Visit Provider Surgery
PROC: 0DJD8ZZ Inspection of Lower Intestinal Tract, Via Natural or Artificial Opening Endoscopic (ICD-10-PCS; CPT 45378; principal; 2025-01-10 10:30)
DX: Z12.11 Encounter for screening for malignant neoplasm of colon (principal); D37.4 Neoplasm of uncertain behavior of colon
CPT/HCPCS: 45380; 88305; J2704

== ENCOUNTER 2025-06-28 12:20 | Outpatient (CLI) | payer BC, SELFPAY ==
--- NOTE | 2025-06-28 | DI.RAD_ITS ---
Exam(s) XR HIP PELVIS ADULT BL EXAM: XR HIP PELVIS ADULT BL CLINICAL HISTORY: CHRONIC HIP PAIN, BILATERAL M25.551. TECHNIQUE: 2D digital imaging was performed of the pelvis and bilateral hips. Three images were obtained. AP pelvis and lateral views of both hips were obtained. COMPARISON: CT CT ABDOMEN PELVIS W from 12/21/2024 FINDINGS: BONES: No acute fracture is present. No bony destructive lesion is seen. There is some deformity of the head of the left femur which may reflect a developmental or congenital hip deformity. JOINTS: No dislocation present. The sacroiliac joints and symphysis pubis are unremarkable. There is mild narrowing of the hip joint spaces bilaterally. SOFT TISSUE: Normal. IMPRESSION: 1. Mild narrowing of the hip joints bilaterally. 2. Deformity of the left femoral head suspicious for developmental/congenital hip deformity. Please correlate with patient's clinical history. DATA REPOSITORY: RADIATION DOSE DELIVERED:
== END 2025-06-28 12:40 ==
LOC: DI 12:21
PROVIDERS: PCP Nurse Practitioner Family; Visit Provider Nurse Practitioner Family
DX: M25.551 Pain in right hip (principal); R93.89 Abnormal findings on diagnostic imaging of other specified body structures
CPT/HCPCS: 73521

== ENCOUNTER 2025-08-15 15:40 | Outpatient (REF) | payer BC, SELFPAY ==
[2025-08-15 22:10] LABS: Anion Gap 9.4 mmol/L (3-11); BUN 12 mg/dL (9-23); CO2 26.6 mmol/L (20.0-31.0); Calcium 9.1 mg/dL (8.3-10.6); Chloride 107 mmol/L (98-107); Glucose 96 mg/dL (74-106); Potassium 3.7 mmol/L (3.5-5.1); Sodium 143 mmol/L (136-145)
[2025-08-17 11:47] LABS: Lyme Ab w Rflx to Lyme Confirm Negative (Negative)
== END 2025-08-15 15:41 | disposition home or self-care (01) ==
LOC: NCHCN 15:40
PROVIDERS: PCP Nurse Practitioner Family; Visit Provider Nurse Practitioner Family
DX: Z00.00 Encounter for general adult medical examination without abnormal findings (principal); M25.50 Pain in unspecified joint; W57.XXXA Bitten or stung by nonvenomous insect and other nonvenomous arthropods, initial encounter
CPT/HCPCS: 80048; 86618